=== PATIENT | male | born 1970 | race Caucasian/White ===

== ENCOUNTER 2019-03-13 00:12 | Inpatient (IN) ==
[2019-03-13] MEDS ORDERED: KETOROLAC TROMETHAMINE 15 MG/ML VIAL IV STA (01:15)
[2019-03-13 01:22] LABS: Basophils # (auto) 0.01 K/uL (0-0.2); Basophils % (auto) 0.1 %; Hematocrit (blood only) 40.8 % (42-52); Hemoglobin 15.1 g/dL (14.0-18.0); Immature Granulocytes # (auto) 0.02 K/uL (0.00-0.02); Immature Granulocytes % (auto) 0.2 %; Lymphocytes # (auto) 0.86 K/uL (1.2-3.4); Lymphocytes % (auto) 7.6 %; Mean Corpuscular Hemoglobin 31.4 pg (25-34); Mean Corpuscular Volume 84.8 fL (80-100); Mean Platelet Volume 9.1 fL (7.4-10.4); Monocytes # (auto) 0.61 K/uL (0.11-0.59); Monocytes % (auto) 5.4 %; Neutrophils # (auto) 9.82 K/uL (1.4-6.5); Neutrophils % (auto) 86.7 %; Platelet Count 356 K/uL (130-400); RDW Coefficient of Variation 11.7 % (11.5-14.5); RDW Standard Deviation 36.4 fL (36.4-46.3); Red Blood Count 4.81 M/uL (4.7-6.1); White Blood Count 11.32 K/uL (4.8-10.8)
[2019-03-13 01:34] LABS: Partial Thromboplastin Ratio 0.9; Partial Thromboplastin Time 25.4 Seconds (21.0-31.0)
[2019-03-13 01:40] LABS: Alanine Aminotransferase 16 U/L (12-78); Albumin Level 3.8 gm/dl (3.4-5.0); Aspartate Aminotransferase 7 U/L (15-37); BUN Creatinine Ratio 19.8 (10-20); Blood Urea Nitrogen 27 mg/dl (7-18); Calcium 9.4 mg/dl (8.5-10.1); Carbon Dioxide 25 mmol/L (21-32); Chloride 99 mmol/L (98-107); Creatinine Clr Calc Pharmacy 61.9 ml/min; Est GFR (African American) 70.9; Est GFR (Non-African American) 61.2; Glucose 201 mg/dl (70-99); Potassium 3.7 mmol/L (3.5-5.1); Sodium 135 mmol/L (136-145)
[2019-03-13 01:44] LABS: Alkaline Phosphatase 67 U/L (45-117); Bilirubin,Total 0.6 mg/dl (0.2-1); Total Protein 7.8 gm/dl (6.4-8.2); Troponin I < 0.015 ng/ml (0-0.045)
[2019-03-13] MEDS ORDERED: ONDANSETRON INJ 2 MG/ML 2 ML VIAL IV STA (01:53)
[2019-03-13] MEDS ORDERED: SODIUM CHLORIDE 0.9% 1000ML 1,000 ML IV ONE (01:53)
[2019-03-13 01:56] LABS: INR 1.1 (0.9-1.1); Prothrombin Time 11.3 Seconds (9.0-12.0)
[2019-03-13] MEDS ORDERED: MoRPHine SULFATE 4 MG/ML 1 ML CARP\\VIAL IV STA (04:03)
--- NOTE | 2019-03-13 04:49 | History & Physical Report ---
Date of Service March 13, 2019 Assessment & Plan (1) Confusion: 48yo M PMH T1DM presents with episode of confusion, altered speech. AMS/speech alteration -CT head negative. Ordered MR imaging; all non-con per request -Pt with DM, murmur, will workup for ?stroke -Echo ordered -Lipids recently checked december 2018, Tchol elevated at 226. -No new meds added given unable to reasonably discuss with ; will await imaging, neuro input -UDS ordered, not collected yet -Unsure if other herbal supplements, drugs, etc taken -Check lyme, b12, folate -Neuro consulted, appreciate any input they can offer -Consider psych consult -IVF NSS @ 125 Head/neck/low back pain -Toradol did not help - adamantly refused narcotics at first, pt requested something else to help pain -4mg IV morphine given in ER. -No further pain meds ordered -Zofran prn for nausea T1DM -Pt on levemir and humalog -26 U long acting daily -ISS 6-7 U short acting per day, did not provide scale -Requesting home insulin vials be used - will need to provide scale and vials to be confirmed by pharmacy Code: Full by default Dispo: admit to tele DVTP: low risk, defer to day team for discussion of chemical ppx with . (2) Episode of change in speech: (3) Headache: (4) Nausea: (5) Diabetes mellitus type 1: (6) Neck pain: History of Present Illness Chief Complaint: AMS, confusion, abnormal speech Primary Care Provider: Ela Nelson MD Pt is a 48yo M PMH T1DM who presents with his after an episode of confusion and altered speech. HPI provided by . Pt and local chiropractors. She states that about 1 week ago, he "threw out his back" and was in a significant amount of pain, and notes that in the last few days he started feeling quite sick, with body aches, chills, nausea/vomiting. She states that he was experiencing some alternating constipation, diarrhea, feeling like the had to have a BM but nothing would come out. She notes he has essentially been bed bound for about a week now. Today at 10AM, he got up to check his blood sugar, and she noticed he was trying to use the finger-prick on his arm, something he never does. He then attempted to hold the test strip to his wrist to collect blood that was not there. She helped to get a sample, and his BSG returned at 240. They administered 3 U of insulin per his ISS. Later in the evening he continued to be confused, stating that he wouldn't answer questions appropriately, answering his birthday incorrectly at times, not knowing the ages of their children, etc; so she decided to call 911. EMS arrived and rechecked glucose at around 220. initially refused transportation to hospital. She eventually drove him to the ER herself. NIHSS of 3 on arrival (issues with Dysarthria, language, orientation). States that he could recognize the object "feather" but would start saying "ffff--" and jibberish would come out. She states he has been taking some ibuprofen for sever head and neck pain, but they are averse to other medications. She notes his head and neck have been acutely bothering him today, stating his face muscles have been twitching. When asked about exposure to bites, cut, scrapes, declined. When asked if tetanus booster was up to date, she stated "I ask that no vaccinations be administered during his stay." When I clarified to ask if if he had had a tetanus booster in the last 10 years, she stated that "we have no need for vaccinations. 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 States she is "well-versed" in diabetes and for him to have a glucose of 240 is "extremely high" for him. She requests we use his own vials of insulin during his stay. CT head normal. Labwork otherwise normal. No alcohol, negative trop, ammonia <10. refused gadolinium for MRI scans; thus all scans w/o contrast. Flu negative. Pt tested for STDs a few months ago, all negative. Allergies Allergy/AdvReac Type Severity Reaction Status Date / Time No Known Allergies Allergy Verified 03/13/19 01:33 Home Medications Home Medications Medication Instructions Recorded Confirmed Type omega 2-cxf-aas-fish oil [Fish Oil] 1 cap PO DAILY 03/16/18 03/13/19 History insulin detemir U-100 100) 100 26 units SQ DAILY #30 ml 09/22/18 03/13/19 Rx unit/mL subcutaneous solution insulin lispro 100) 100 unit/mL 6 - 7 units SUBCUT DAILY #30 ml 09/22/18 03/13/19 Rx subcutaneous solution sildenafil 100 mg tablet 100 mg PO DAILY PRN #6 tab 01/03/19 03/13/19 Rx Past Med/Surg History Medical History Diabetes mellitus type 1 History of anesthesia reaction tachycardia with dental anesthesia Surgical History History of eye surgery right eye--multiple procedures History of tooth extraction wisdom teeth S/P foot surgery, left Family History Grandfather Myocardial infarction Social History Preferred Language: Mongolian Communication Ability: Effective Visual Impairment: Limited Hearing Ability: Normal Rn Primary Care Required: No Beliefs That Will Affect Care: None Current Living Situation: Significant Other Other Information That Helps Us Care for You: No Feels Safe at Home: Yes Safety Concerns: Feels Safe At This Time Smoking Status: Former smoker Second Hand Exposure: Yes (mother smoked) ; Hx Alcohol Use: No Hx Substance Use: No Childhood Exposure to Second-Hand Smoke: Yes Dental Care, Regularly: Yes Physical Activity Frequency: Daily Seatbelt Use: always Sunscreen Use: No Review of Systems Review of Systems: All systems reviewed & are unremarkable except as noted in HPI & below and Unobtainable due to cognitive status Physical Exam 2 Constitutional: WD/WN, vitals as above unwell but not in distress Eyes: PERRL, conjunctivae normal, anicteric sclerae ENMT: Ears: no hearing impairment Neck: normal visual inspection Respiratory: normal respiratory effort, lungs clear to auscultation Cardiovascular: Rate/Rhythm: regular rate and regular rhythm Heart Sounds: + murmur Extremities: no edema Gastrointestinal (Abdomen): normal bowel sounds, soft, nontender, no hepatosplenomegaly Musculoskeletal: Head/Neck/Chest: head normal to inspection Extremities: no joint enlargement Skin: no rashes, warm and dry Neurologic: no focal motor deficits Speech / Cognition: + abnormal speech pt speaking with difficulty, not all words in sequence are correct; (words replaced with similar-sounding words). able to follow most commands but states exam is limited due to pain. Repeatedly states that we need to check his blood sugar, despite it having just been checked. Psychiatric: Orientation: alert and oriented x 3 Results & Data Vital Signs (Past 12 Hours) Vital Signs Temp Pulse Pulse Resp BP BP Pulse Ox 03/13/19 03:30 80 16 100 03/13/19 03:26 76 17 148/57 H 99 03/13/19 03:04 15 03/13/19 02:30 15 148/76 H 03/13/19 02:13 68 63 16 158/87 H 158/87 H 99 03/13/19 00:18 97.7 F 80 20 154/77 H 100 Laboratory Results 03/13/19 03/13/19 03/13/19 Range/Units 03:40 01:35 01:35 WBC (4.8-10.8) K/uL RBC (4.7-6.1) M/uL Hgb (14.0-18.0) g/dL Hct (42-52) % MCV (80-100) fL MCH (25-34) pg MCHC (32-36) g/dL RDW Std Deviation (36.4-46.3) fL RDW Coeff of Radha (11.5-14.5) % Plt Count (130-400) K/uL MPV (7.4-10.4) fL Immature Gran % (Auto) % Neut % (Auto) % Lymph % (Auto) % Archer % (Auto) % Eos % (Auto) % Baso % (Auto) % Immature Gran # (Auto) (0.00-0.02) K/uL Neut # (Auto) (1.4-6.5) K/uL Lymph # (Auto) (1.2-3.4) K/uL Archer # (Auto) (0.11-0.59) K/uL Eos # (Auto) (0-0.5) K/uL Baso # (Auto) (0-0.2) K/uL PT (9.0-12.0) Seconds INR (0.9-1.1) APTT (21.0-31.0) Seconds PTT Ratio Sodium (136-145) mmol/L Potassium (3.5-5.1) mmol/L Chloride (98-107) mmol/L Carbon Dioxide (21-32) mmol/L Anion Gap (3-11) BUN (7-18) mg/dl Creatinine (0.6-1.4) mg/dl Est Cr Clr Drug Dosing ml/min Est GFR ( Amer) Est GFR (Non-Af Amer) BUN/Creatinine Ratio (10-20) Glucose (70-99) mg/dl POC Glucose (70-99) Calcium (8.5-10.1) mg/dl Magnesium (1.8-2.4) mg/dl Total Bilirubin (0.2-1) mg/dl AST (15-37) U/L ALT (12-78) U/L Alkaline Phosphatase (45-117) U/L Ammonia < 10.0 L (11-32) umol/L Troponin I (0-0.045) ng/ml Total Protein (6.4-8.2) gm/dl Albumin (3.4-5.0) gm/dl Globulin (2.5-4.0) gm/dl Albumin/Globulin Ratio (0.9-2) Ethyl Alcohol mg/dL < 3.0 (0-3) mg/dl Influenza Type A Ag Neg for Influ A (Neg) Influenza Type B Ag Neg for Influ B (Neg) 03/13/19 03/13/19 03/13/19 Range/Units 01:11 01:10 01:10 WBC (4.8-10.8) K/uL RBC (4.7-6.1) M/uL Hgb (14.0-18.0) g/dL Hct (42-52) % MCV (80-100) fL MCH (25-34) pg MCHC (32-36) g/dL RDW Std Deviation (36.4-46.3) fL RDW Coeff of Radha (11.5-14.5) % Plt Count (130-400) K/uL MPV (7.4-10.4) fL Immature Gran % (Auto) % Neut % (Auto) % Lymph % (Auto) % Archer % (Auto) % Eos % (Auto) % Baso % (Auto) % Immature Gran # (Auto) (0.00-0.02) K/uL Neut # (Auto) (1.4-6.5) K/uL Lymph # (Auto) (1.2-3.4) K/uL Archer # (Auto) (0.11-0.59) K/uL Eos # (Auto) (0-0.5) K/uL Baso # (Auto) (0-0.2) K/uL PT 11.3 (9.0-12.0) Seconds INR 1.1 (0.9-1.1) APTT (21.0-31.0) Seconds PTT Ratio Sodium 135 L (136-145) mmol/L Potassium 3.7 (3.5-5.1) mmol/L Chloride 99 (98-107) mmol/L Carbon Dioxide 25 (21-32) mmol/L Anion Gap 11.0 (3-11) BUN 27 H (7-18) mg/dl Creatinine 1.35 (0.6-1.4) mg/dl Est Cr Clr Drug Dosing 61.9 ml/min Est GFR ( Amer) 70.9 Est GFR (Non-Af Amer) 61.2 BUN/Creatinine Ratio 19.8 (10-20) Glucose 201 H (70-99) mg/dl POC Glucose 209 H (70-99) Calcium 9.4 (8.5-10.1) mg/dl Magnesium 2.0 (1.8-2.4) mg/dl Total Bilirubin 0.6 (0.2-1) mg/dl AST 7 L (15-37) U/L ALT 16 (12-78) U/L Alkaline Phosphatase 67 (45-117) U/L Ammonia (11-32) umol/L Troponin I < 0.015 (0-0.045) ng/ml Total Protein 7.8 (6.4-8.2) gm/dl Albumin 3.8 (3.4-5.0) gm/dl Globulin 4.0 (2.5-4.0) gm/dl Albumin/Globulin Ratio 1.0 (0.9-2) Ethyl Alcohol mg/dL (0-3) mg/dl Influenza Type A Ag (Neg) Influenza Type B Ag (Neg) 03/13/19 03/13/19 Range/Units 01:10 01:10 WBC 11.32 H (4.8-10.8) K/uL RBC 4.81 (4.7-6.1) M/uL Hgb 15.1 (14.0-18.0) g/dL Hct 40.8 L (42-52) % MCV 84.8 (80-100) fL MCH 31.4 (25-34) pg MCHC 37.0 H (32-36) g/dL RDW Std Deviation 36.4 (36.4-46.3) fL RDW Coeff of Radha 11.7 (11.5-14.5) % Plt Count 356 (130-400) K/uL MPV 9.1 (7.4-10.4) fL Immature Gran % (Auto) 0.2 % Neut % (Auto) 86.7 % Lymph % (Auto) 7.6 % Archer % (Auto) 5.4 % Eos % (Auto) 0.0 % Baso % (Auto) 0.1 % Immature Gran # (Auto) 0.02 (0.00-0.02) K/uL Neut # (Auto) 9.82 H (1.4-6.5) K/uL Lymph # (Auto) 0.86 L (1.2-3.4) K/uL Archer # (Auto) 0.61 H (0.11-0.59) K/uL Eos # (Auto) 0.00 (0-0.5) K/uL Baso # (Auto) 0.01 (0-0.2) K/uL PT (9.0-12.0) Seconds INR (0.9-1.1) APTT 25.4 (21.0-31.0) Seconds PTT Ratio 0.9 Sodium (136-145) mmol/L Potassium (3.5-5.1) mmol/L Chloride (98-107) mmol/L Carbon Dioxide (21-32) mmol/L Anion Gap (3-11) BUN (7-18) mg/dl Creatinine (0.6-1.4) mg/dl Est Cr Clr Drug Dosing ml/min Est GFR ( Amer) Est GFR (Non-Af Amer) BUN/Creatinine Ratio (10-20) Glucose (70-99) mg/dl POC Glucose (70-99) Calcium (8.5-10.1) mg/dl Magnesium (1.8-2.4) mg/dl Total Bilirubin (0.2-1) mg/dl AST (15-37) U/L ALT (12-78) U/L Alkaline Phosphatase (45-117) U/L Ammonia (11-32) umol/L Troponin I (0-0.045) ng/ml Total Protein (6.4-8.2) gm/dl Albumin (3.4-5.0) gm/dl Globulin (2.5-4.0) gm/dl Albumin/Globulin Ratio (0.9-2) Ethyl Alcohol mg/dL (0-3) mg/dl Influenza Type A Ag (Neg) Influenza Type B Ag (Neg) Code Status & VTE Plan Code Status full Supervising Physician Co-Signing Physician Notes Patient was evaluated by me personally. I reviewed the chart, the orders and discussed the case in detail with Dr. Roberta Torres MD . I read this H&P and agree with its contents to entirety. Resident Activity Tracking Resident Involvement: Resident Care Provided Care Provided: Adult Hospital Medicine (1) Headache Headache chronicity pattern: acute headache Headache type: unspecified Intractability: not intractable Qualified Code(s): R51 - Headache
[2019-03-13] MEDS ORDERED: ALUMINUM/MAGNESIUM SUSP 30 ML UDC PO PRN (05:50)
[2019-03-13] MEDS ORDERED: POLYETHYLENE (MIRALAX) 17 GM PACK PO PRN (05:50)
[2019-03-13] MEDS ORDERED: MAGNESIUM HYDROXIDE SUSP 30 ML UDC PO PRN (05:50)
[2019-03-13] MEDS ORDERED: ACETAMINOPHEN 325 MG TAB PO PRN (05:50)
--- NOTE | 2019-03-13 06:14 | Emergency Department Note ---
Entered by Lucia Lynne acting as a scribe for History of Present Illness General Chief complaint: Neuro Symptoms/Deficit Stated complaint: FLU,NAUSEA,VOMITING,INABILITY TO FORM PROPER WORDS Time Seen by Provider: 03/13/19 00:59 Source: patient and family () History of Present Illness Onset (ago): hour(s) 3 Location: head Pain Consistency: + other (episode) Maximum Pain Intensity: 5 Quality: + other (neurological symptoms) Associated symptoms: + fever/chills (intermittent), + headaches (exacerbated by light), + nausea/vomiting and + other (positive unable to put proper words together; positive intermittently saying things that are not words; positive unable to say date of ; positive unable to say year; negative numbness; negative vision changes; negative difficulty walking; positive neck pain) The patient is a 48 year old male with PMHx of Type 1 Diabetes who presents to the Emergency Room with complaints of an episode of neurological symptoms that began at approximately 2200, 3 hours prior to arrival. The patient's states that at this time the patient was having difficulties testing his blood sugar, which is unusual for him. The patient's states that she then noticed that the patient was unable to put the proper words together and would intermittently say things that were not words. The patient's states that the patient was unable to tell her his date of but was intermittently able to say the current year correctly. The patient denies numbness. He states that he has a headache at the back of his head and neck pain. The patient states that his pain is exacerbated by light. He reports feeling nauseous and dehydrated currently. The patient denies vision changes and difficulties walking. The patient denies falls. The patient's states that the patient's back "went out" last week and he then began to have fevers and chills over the past 5 days. The patient's reports that the patient had nausea and vomiting during this time, stating that the patient has been unable to keep food down. The patient states that yesterday and today his symptoms appeared to be improving before this episode tonight. Home Medications Home Medications Medication Instructions Recorded Confirmed Type omega 3-blw-ogf-fish oil [Fish Oil] 1 cap PO DAILY 03/16/18 03/13/19 History insulin detemir U-100 100) 100 26 units SQ DAILY #30 ml 09/22/18 03/13/19 Rx unit/mL subcutaneous solution insulin lispro 100) 100 unit/mL 6 - 7 units SUBCUT DAILY #30 ml 09/22/18 03/13/19 Rx subcutaneous solution sildenafil 100 mg tablet 100 mg PO DAILY PRN #6 tab 01/03/19 03/13/19 Rx Allergies Allergy/AdvReac Type Severity Reaction Status Date / Time No Known Allergies Allergy Verified 03/13/19 01:33 Past Med/Surg History Medical History Diabetes mellitus type 1 History of anesthesia reaction tachycardia with dental anesthesia Surgical History History of eye surgery right eye--multiple procedures History of tooth extraction wisdom teeth S/P foot surgery, left Family History Grandfather Myocardial infarction Social History Preferred Language: Citizen Of [place] Communication Ability: Effective Visual Impairment: Limited Hearing Ability: Normal 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 and A total of 10 systems reviewed and were otherwise negative Physical Exam Vital Signs Vital Signs - 24 hr 03/13/19 00:18 03/13/19 02:13 03/13/19 02:30 Temperature 36.5 C Temperature Source Oral Pulse Rate 80 68 Pulse Rate [Finger] 63 Pulse Rate from SpO2 Sensor Pulse Rhythm Regular Pulse Strength Normal Respiratory Rate 20 16 15 Respiratory Effort / Characteristics Non-Labored Spontaneous Respiratory Depth Normal Respiratory Pattern Regular Blood Pressure 154/77 H 158/87 H 148/76 H Blood Pressure [Right Arm] 158/87 H Blood Pressure Mean 102 122 116 Blood Pressure Mean [Right Arm] 110 Blood Pressure Position Sitting Pulse Oximetry 100 99 Oxygen Delivery Method Room Air Room Air Sepsis Recent Fever Within 48 Hours Yes Sepsis Action Taken by Nursing No Action Required 03/13/19 03:04 03/13/19 03:26 03/13/19 03:30 Temperature Temperature Source Pulse Rate 76 80 Pulse Rate [Finger] Pulse Rate from SpO2 Sensor 78 79 Pulse Rhythm Pulse Strength Respiratory Rate 15 17 16 Respiratory Effort / Characteristics Respiratory Depth Respiratory Pattern Blood Pressure 148/57 H Blood Pressure [Right Arm] Blood Pressure Mean 102 Blood Pressure Mean [Right Arm] Blood Pressure Position Pulse Oximetry 99 100 Oxygen Delivery Method Sepsis Recent Fever Within 48 Hours Sepsis Action Taken by Nursing GENERAL: Covering eyes. Awake, appears uncomfortable HENT: Normocephalic, atraumatic. EYES: Normal conjunctiva. Sclera non-icteric. NECK: Supple. No nuchal rigidity. RESPIRATORY: Clear to auscultation. No wheezes. Normal respiratory effort. CARDIAC: Normal rate. Normal rhythm. Extremities warm and well perfused. GI: Soft, non-distended. No real tenderness to palpation. No rebound or guarding. RECTAL: Deferred. MUSCULOSKELETAL: Atraumatic. Chest examination reveals no tenderness. LOWER EXTREMITIES: Calves are equal size bilaterally and non-tender. No edema NEURO: No sensory or motor deficits noted. No facial droop. No slurred speech. Patient tangential with answering questions at times. Difficulty answering the year. Confused statements at times. SKIN: Warm and dry. No rash or jaundice noted. Course Course 0102: Past medical records reviewed. The patient was evaluated in room C2B. A complete history and physical exam was performed. 0254: I checked on and updated the patient on all results. He is in agreement with the treatment plan. 0308: I discussed the case with Dr. [facility] Hospitalist who accepts the patient for further evaluation. Administered Medications Discontinued Medications Sodium Chloride (Nss 1000ml) 1,000 mls @ 999 mls/hr IV .Q1H1M ONE Stop: 03/13/19 02:53 Last Infusion: 03/13/19 03:10 Dose: 0 mls/hr Documented by: [id number] Admin: 03/13/19 02:11 Dose: 999 mls/hr Documented by: [id number] Ketorolac Tromethamine (Toradol) 15 mg IV NOW STA Stop: 03/13/19 01:16 Last Admin: 12/09/19 02:52 Dose: 15 mg Documented by: [id number] Morphine Sulfate (Morphine Sulfate) 4 mg IV NOW STA Stop: 03/13/19 04:04 Last Admin: 03/13/19 04:09 Dose: 4 mg Documented by: [id number] Ondansetron HCl (Zofran) 4 mg IV NOW STA Stop: 03/13/19 01:54 Last Admin: 03/13/19 02:11 Dose: 4 mg Documented by: [id number] Medical Decision Making Differential Diagnosis Differential diagnoses includes but is not limited to toxic, metabolic, infectious, traumatic, cardiac, neurologic, hematologic, psychiatric and inflammatory etiologies. Medical Records Attestation: I reviewed the patient's medical records. Home Medications Current Medication List: was personally reviewed by me Laboratory Data Attestation: I reviewed the patient's lab results. Result diagrams: 03/13/19 01:10 03/13/19 01:10 Lab Results 03/13/19 03/13/19 03/13/19 Range/Units 01:10 01:10 01:10 WBC 11.32 H (4.8-10.8) K/uL RBC 4.81 (4.7-6.1) M/uL Hgb 15.1 (14.0-18.0) g/dL Hct 40.8 L (42-52) % MCV 84.8 (80-100) fL MCH 31.4 (25-34) pg MCHC 37.0 H (32-36) g/dL RDW Std Deviation 36.4 (36.4-46.3) fL RDW Coeff of Radha 11.7 (11.5-14.5) % Plt Count 356 (130-400) K/uL MPV 9.1 (7.4-10.4) fL Immature Gran % (Auto) 0.2 % Neut % (Auto) 86.7 % Lymph % (Auto) 7.6 % Harris % (Auto) 5.4 % Eos % (Auto) 0.0 % Baso % (Auto) 0.1 % Immature Gran # (Auto) 0.02 (0.00-0.02) K/uL Neut # (Auto) 9.82 H (1.4-6.5) K/uL Lymph # (Auto) 0.86 L (1.2-3.4) K/uL Harris # (Auto) 0.61 H (0.11-0.59) K/uL Eos # (Auto) 0.00 (0-0.5) K/uL Baso # (Auto) 0.01 (0-0.2) K/uL PT (9.0-12.0) Seconds INR (0.9-1.1) APTT 25.4 (21.0-31.0) Seconds PTT Ratio 0.9 Sodium 135 L (136-145) mmol/L Potassium 3.7 (3.5-5.1) mmol/L Chloride 99 (98-107) mmol/L Carbon Dioxide 25 (21-32) mmol/L Anion Gap 11.0 (3-11) BUN 27 H (7-18) mg/dl Creatinine 1.35 (0.6-1.4) mg/dl Est Cr Clr Drug Dosing 61.9 ml/min Est GFR ( Amer) 70.9 Est GFR (Non-Af Amer) 61.2 BUN/Creatinine Ratio 19.8 (10-20) Glucose 201 H (70-99) mg/dl POC Glucose (70-99) Calcium 9.4 (8.5-10.1) mg/dl Magnesium 2.0 (1.8-2.4) mg/dl Total Bilirubin 0.6 (0.2-1) mg/dl AST 7 L (15-37) U/L ALT 16 (12-78) U/L Alkaline Phosphatase 67 (45-117) U/L Ammonia (11-32) umol/L Troponin I < 0.015 (0-0.045) ng/ml Total Protein 7.8 (6.4-8.2) gm/dl Albumin 3.8 (3.4-5.0) gm/dl Globulin 4.0 (2.5-4.0) gm/dl Albumin/Globulin Ratio 1.0 (0.9-2) Ethyl Alcohol mg/dL (0-3) mg/dl Influenza Type A Ag (Neg) Influenza Type B Ag (Neg) 03/13/19 03/13/19 03/13/19 Range/Units 01:10 01:11 01:35 WBC (4.8-10.8) K/uL RBC (4.7-6.1) M/uL Hgb (14.0-18.0) g/dL Hct (42-52) % MCV (80-100) fL MCH (25-34) pg MCHC (32-36) g/dL RDW Std Deviation (36.4-46.3) fL RDW Coeff of Radha (11.5-14.5) % Plt Count (130-400) K/uL MPV (7.4-10.4) fL Immature Gran % (Auto) % Neut % (Auto) % Lymph % (Auto) % Harris % (Auto) % Eos % (Auto) % Baso % (Auto) % Immature Gran # (Auto) (0.00-0.02) K/uL Neut # (Auto) (1.4-6.5) K/uL Lymph # (Auto) (1.2-3.4) K/uL Harris # (Auto) (0.11-0.59) K/uL Eos # (Auto) (0-0.5) K/uL Baso # (Auto) (0-0.2) K/uL PT 11.3 (9.0-12.0) Seconds INR 1.1 (0.9-1.1) APTT (21.0-31.0) Seconds PTT Ratio Sodium (136-145) mmol/L Potassium (3.5-5.1) mmol/L Chloride (98-107) mmol/L Carbon Dioxide (21-32) mmol/L Anion Gap (3-11) BUN (7-18) mg/dl Creatinine (0.6-1.4) mg/dl Est Cr Clr Drug Dosing ml/min Est GFR ( Amer) Est GFR (Non-Af Amer) BUN/Creatinine Ratio (10-20) Glucose (70-99) mg/dl POC Glucose 209 H (70-99) Calcium (8.5-10.1) mg/dl Magnesium (1.8-2.4) mg/dl Total Bilirubin (0.2-1) mg/dl AST (15-37) U/L ALT (12-78) U/L Alkaline Phosphatase (45-117) U/L Ammonia < 10.0 L (11-32) umol/L Troponin I (0-0.045) ng/ml Total Protein (6.4-8.2) gm/dl Albumin (3.4-5.0) gm/dl Globulin (2.5-4.0) gm/dl Albumin/Globulin Ratio (0.9-2) Ethyl Alcohol mg/dL (0-3) mg/dl Influenza Type A Ag (Neg) Influenza Type B Ag (Neg) 03/13/19 03/13/19 Range/Units 01:35 03:40 WBC (4.8-10.8) K/uL RBC (4.7-6.1) M/uL Hgb (14.0-18.0) g/dL Hct (42-52) % MCV (80-100) fL MCH (25-34) pg MCHC (32-36) g/dL RDW Std Deviation (36.4-46.3) fL RDW Coeff of Radha (11.5-14.5) % Plt Count (130-400) K/uL MPV (7.4-10.4) fL Immature Gran % (Auto) % Neut % (Auto) % Lymph % (Auto) % Harris % (Auto) % Eos % (Auto) % Baso % (Auto) % Immature Gran # (Auto) (0.00-0.02) K/uL Neut # (Auto) (1.4-6.5) K/uL Lymph # (Auto) (1.2-3.4) K/uL Harris # (Auto) (0.11-0.59) K/uL Eos # (Auto) (0-0.5) K/uL Baso # (Auto) (0-0.2) K/uL PT (9.0-12.0) Seconds INR (0.9-1.1) APTT (21.0-31.0) Seconds PTT Ratio Sodium (136-145) mmol/L Potassium (3.5-5.1) mmol/L Chloride (98-107) mmol/L Carbon Dioxide (21-32) mmol/L Anion Gap (3-11) BUN (7-18) mg/dl Creatinine (0.6-1.4) mg/dl Est Cr Clr Drug Dosing ml/min Est GFR ( Amer) Est GFR (Non-Af Amer) BUN/Creatinine Ratio (10-20) Glucose (70-99) mg/dl POC Glucose (70-99) Calcium (8.5-10.1) mg/dl Magnesium (1.8-2.4) mg/dl Total Bilirubin (0.2-1) mg/dl AST (15-37) U/L ALT (12-78) U/L Alkaline Phosphatase (45-117) U/L Ammonia (11-32) umol/L Troponin I (0-0.045) ng/ml Total Protein (6.4-8.2) gm/dl Albumin (3.4-5.0) gm/dl Globulin (2.5-4.0) gm/dl Albumin/Globulin Ratio (0.9-2) Ethyl Alcohol mg/dL < 3.0 (0-3) mg/dl Influenza Type A Ag Neg for Influ A (Neg) Influenza Type B Ag Neg for Influ B (Neg) Imaging Data Radiologist's Impression: Radiology results as stated below per my review and the radiologist's interpretation: CT HEAD: FINDINGS: Mild prominence of the interhemispheric fissure in the tentoriumis likely within normal limits. No intracranial hemorrhage, abnormal intra- or extra-axial collections or parenchymal lesions are seen. The shape and configuration of the cortical sulci, basal cisterns and ventricles are within normal limits. The chavis-white differentiation is preserved. No evidence of mass effect, midline shift, or edema. The osseous structures are unremarkable. The visualized portions of the paranasal sinuses are clear. IMPRESSION:Normal non-contrast CT scan of the head. Radiologist: Bel Wilhelm MD Study ready at 02:08 and initial results transmitted at 02:19 ECG Data Attestation: I personally reviewed and interpreted this ECG as follows: Indication: + altered mental status Rate (beats per minute): 74 Rhythm: + normal sinus ECG Intervals/blocks: + Normal QT-c ECG ST segments: no ST depression and no ST elevation ECG Findings: + Other (some artifact); no PVCs Blood Pressure Blood Pressure Findings: Elevated blood pressure Blood Pressure Disposition: further management by hospitalist TERRENCE Narrative Patient is a 48-year-old type I diabetic presenting today with complaints of word finding issues starting fairly acutely this evening. Been unwell all week with reports of intermittent fevers nausea vomiting weakness. Had back pain earlier in the week that is now significant improved although now having more of a headache with some neck discomfort more in the occiput. Denies trauma. Moving all extremities. No facial droop or slurred speech but having some issues with his birthday and stating that time. Making some nonsensical statements at times. Significant other reports is acutely different. EKG was completed without significant interval abnormalities. Basic labs and glucose were obtained. Lactate not significantly elevated. No signs of DKA. Afebrile here. Lower suspicion for acute meningitis. White count of 11.32 is nonspecific. No significant electrolyte abnormality. Alcohol level undetectable. CT the head was completed without evidence per stat read of acute intracranial abnormality. Discussed with him performing angiograms to evaluate for vascular issues such as stenosis, thrombosis, or dissection. They wish to defer this at this time. I doubt this is bacterial meningitis. Do not feel the patient would be a candidate for TPA given the limited symptoms here. Given that he is had persistence of the issues discussed with him my recommendation to stay for further medical and neurological evaluation here in the hospital. Was agreeable for further MRI testing without contrast. Discussed with the hospitalist. Patient was agreeable to staying for further evaluation. No change in his symptoms while here. Impression & Plan Confusion, Episode of change in speech, Headache, Nausea Discharge Plan Visit Data *Final* Discharge Date/Time: 03/13/19 05:08 Chief Complaint: Neuro Symptoms/Deficit Stated Complaint: FLU,NAUSEA,VOMITING,INABILITY TO FORM PROPER WORDS ED Provider: Shady Kapoor Discharge Problem: Confusion, Episode of change in speech, Headache, Nausea Patient Disposition: Admitted As Inpatient Discharge Instructions Interventions: ED Discharge Assessment Last Done: 03/13/19 05:08 Discharge Problem: Headache Qualifiers: Headache type: unspecified Headache chronicity pattern: acute headache Intractability: not intractable Qualified Code(s): R51 - Headache The lisset's documentation has been prepared under my direction and personally reviewed by me in its entirety. I confirm that the note above accurately reflects all work, treatment, procedures, and medical decision making performed by me.
[2019-03-13] MEDS ORDERED: MoRPHine SULFATE 10 MG/ML CARP/VIAL IV PRN ×2 (06:20→09:12)
[2019-03-13] MEDS: SODIUM CHLORIDE 0.9% 1000ML 1,000 ML IV SCH ×3 (06:29→23:28)
--- NOTE | 2019-03-13 06:33 | Billing Data ---
Coding Level of Care Code 67154 OBS Care - Level 2
[2019-03-13] MEDS: TRAMADOL HCL 50 MG TABLET PO PRN ×2 (06:35→12:07)
--- NOTE | 2019-03-13 07:05 | Magnetic Resonance Report ---
MR brain wo con HISTORY: Mental status change ams, speech issues TECHNIQUE: Multiplanar multisequence MRI of the brain was performed without the use of contrast. COMPARISON STUDY: None. FINDINGS: There are no areas of restricted diffusion to suggest acute infarction. The midline structu res are intact. The paranasal sinuses are clear. The mastoid air cells are clear. The ventricles and sulci are within normal limits for age. There is no mass, hematoma, midline shift. The major vascular flow-voids at the skull base are well maintained. Coronal FLAIR images demonstrate several very smal l foci of nonspecific increased signal right occipital lobe. IMPRESSION: No acute intracranial abnormality. Several very small foci of increased signal right occipital lobe. The above report was generated using voice recognition software. It may contain grammatical, syntax or spelling errors. Electronically signed by: Henry Cortés M.D. 03/13/2019 7:03 AM
--- NOTE | 2019-03-13 07:07 | Magnetic Resonance Report ---
MR angio head wo con HISTORY: speech issues ams, carreon TECHNIQUE: 3-D [id number] MRA of the brain was performed without contrast. COMPARISON STUDY: None. FINDINGS: Visualized intracranial internal carotid arteries, distal vertebral arteries, and basilar a rtery are widely patent. There is no significant stenosis, occlusion, or aneurysm seen within the manuel ateral ACAs, MCAs, or telegraphic typewriter operator chief. IMPRESSION: No significant stenosis, occlusion, or aneurysm within the [place]. The above report was generated using voice recognition software. It may contain grammatical, syntax or spelling errors. Electronically signed by: Henry Cortés M.D. 03/13/2019 7:06 AM
--- NOTE | 2019-03-13 07:13 | CT Scan Report ---
CT OF THE HEAD WITHOUT CONTRAST CLINICAL HISTORY: Stroke evaluation COMPARISON STUDY: No previous studies for comparison. CT DOSE: 614.27 mGy.cm TECHNIQUE: Helical axial images of the head were obtained without IV contrast. Automated exposure con trol was utilized for the study. A dose lowering technique was utilized adhering to the principles o f ALARA. FINDINGS: No acute intracranial hemorrhage, midline shift or mass effect is present. The ventricular system is unremarkable. The basilar cisterns are patent. No extra-axial collections are present. Ther e are no findings to suggest acute dural sinus thrombosis or acute territorial infarct. No significan t calvarial abnormalities are present. Visualized portions of the sinuses and mastoid air cells are c lear. IMPRESSION: No acute intracranial findings. Electronically signed by: Ben Castellon M.D. 03/13/2019 7:11 AM
--- NOTE | 2019-03-13 07:48 | Magnetic Resonance Report ---
MRA OF THE NECK WITHOUT CONTRAST CLINICAL HISTORY: Speech issues. Altered mental status. Headache. COMPARISON STUDY: None. TECHNIQUE: A 1.5 Kierra magnet was utilized. 2-D and 3-D [id number] imaging was performed to obt ain unenhanced MRA of the neck. NASCET criteria were utilized to estimate the degree of carotid sten osis. FINDINGS: This exam is significantly contrast was given motion artifact and lack of postcontrast imag ing. There is mild irregularity/indentation of the proximal right internal carotid artery possibly du e to atherosclerosis. There is no significant stenosis. The bilateral common carotid and cervical lef t internal carotid artery appear patent. The left vertebral artery is dominant and patent. Sensitivit y for dissection is diminished on this exam but none are identified. IMPRESSION: 1. Exam significantly compromised given motion artifact and lack of postcontrast imaging. 2. Mild irregularity/dilatation of the proximal right internal carotid artery, possibly due to athero sclerosis. No significant stenosis. Electronically signed by: Ben Castellon M.D. 03/13/2019 7:47 AM
[2019-03-13 08:10] LABS: Lyme Ab IgG w/WB Rflx Negative (Negative); Lyme Ab IgM w/WB Rflx Negative (Negative)
[2019-03-13 08:12] LABS: Folate (Folic Acid) > 24.00 ng/ml (>5.38); Vitamin B12 871 pg/ml (211-911)
[2019-03-13] MEDS ORDERED: INSULIN DETEMIR FLEXPEN/FLEX TOUCH 100 UNITS/ML 3ML SC SCH ×3 (09:00→09:45)
[2019-03-13] MEDS ORDERED: MoRPHine SULFATE 2 MG/ML CARP ONE (09:01)
[2019-03-13] MEDS ORDERED: MoRPHine SULFATE 4 MG/ML 1 ML CARP\\VIAL ONE (09:02)
[2019-03-13] MEDS ORDERED: KETOROLAC 30 MG/ML VIAL IV ONE (09:24)
--- NOTE | 2019-03-13 09:26 | Neurology Consultation ---
Date of Consultation March 13, 2019 Assessment & Plan (1) Headache: (2) Episode of change in speech: (3) Confusion: (4) Nausea: Patient has had a significant viral/flu-like illness for the last week with nausea vomiting, occipital headache, lightheadedness and dehydration. He has been fatigued and sleepy missing work. He was admitted early this morning with an episode of some confusion and word- finding difficulties of a nonspecific nature. He was dehydrated on admission and his mental status and speech are back to baseline without any focal neurologic signs or meningeal signs. I suspect he has a bit of meningismus (without meningitis) clinically. He remains fatigued and lightheaded with standing. MRI of the brain showed no acute stroke. There was some tiny nonspecific old white matter spots in the right occipital head region. No significant vascular anomalies were noted. He still has a significant headache with nausea, vomiting, and mild phonophobia. He has a history of low back pain recently who which is not a significant problem currently. Recommendations: 1. Hydrate as you are doing. 2. Treat headache with nonsteroidal anti-inflammatory medication. With the nausea vomiting and photophobia as well as the occipital headache, trying a 4 mg sumatriptan injection subcutaneously may be beneficial. 3. Increase activity as able. Otherwise I have no further neurologic testing or treatment recommendations to make at this time. I do not believe he needs an echocardiogram, lumbar puncture, or EEG at this time. 4. Doug and follow-up as an outpatient as desired. Overall, I spent a total of 90 minutes with this case including review of records, review of MRI films, direct evaluation the patient at bedside, and discussion of the case with the patient and his RN at bedside, Dr. Bishop and Dr. Bustos, including differential diagnosis and treatment options. History of Present Illness Reason for Consultation: Patient is a 48-year-old, who I was asked to see the request of Dr. Torres, for neurologic consultation regarding acute encephalopathy and other issues Requesting Physician: Dr. Dodson Attending Physician: Александр Bustos History of Present Illness Patient is a 48-year-old, who has a greater than 45 year history of type 1 diabetes on insulin. He has no history of hypertension, dyslipidemia, heart issues, or previous stroke. He has no history of head trauma or meningitis but did severe headaches starting age 19-20 years old. Over time he has had some intermittent occipital headaches but does not have a history of migraines as far as I can ascertain. About 1 week ago he had some low back pain of a non radiating nature. He also had increase in occipital pain bilaterally. There was sacral pain but no cervical spine pain in the limbs had no pain, weakness, or numbness. He felt that he had a flu-like illness and spent much in the last week sleeping and he missed work. He was fatigued and achy. On the evening March 12 had the occipital headache and at around 2200 he had difficulty figuring out how uses insulin. This had never happened to. He would say some words in his speech that did not make sense but does recall all this. This confusion word-finding difficulty lasted several hours. He had some nausea vomiting myalgias. He knew that dehydrated. The record to the emergency room on March 13 at 0018, the temperature 36.5, pulse is 80 regular, blood pressure 154/77, and O2 saturation 100%. There were no focal neurologic findings and meningeal signs in. He did not a omid encephalopathy and over time gradually felt that he improved with this cognitive function. CBC showed white count of 11.3 normal hemoglobin hematocrit. Glucose was 209 Chem profile was otherwise unremarkable except for an elevated BUN. Flu, Lyme antibody titers, B12, folate were. CT scan of the head showed no acute changes. MRI of the brain showed no acute stroke with 2 tiny nonspecific right occipital white matter changes of an old nature. MR angiography of the head neck were largely unremarkable. This morning he feels somewhat lightheaded and nauseated and threw up several times during our initial examination. He felt warm and after vomiting felt a little bit better. He has a bioccipital pounding throbbing pain with a little bit of photophobia. Allergies Allergy/AdvReac Type Severity Reaction Status Date / Time No Known Allergies Allergy Verified 03/13/19 01:33 Home Medications Home Medications Medication Instructions Recorded Confirmed Type omega 5-[id number]-dsp-fish oil [Fish Oil] 1 cap PO DAILY 03/16/18 03/13/19 History insulin detemir U-100 100) 100 26 units SQ DAILY #30 ml 09/22/18 03/13/19 Rx unit/mL subcutaneous solution insulin lispro 100) 100 unit/mL 6 - 7 units SUBCUT DAILY #30 ml 09/22/18 03/13/19 Rx subcutaneous solution sildenafil 100 mg tablet 100 mg PO DAILY PRN #6 tab 01/03/19 03/13/19 Rx Patient History Family History Grandfather Myocardial infarction Father Heart disease Social History Preferred Language: Serbian Communication Ability: Effective Visual Impairment: Limited Hearing Ability: Normal Art Editor Required: No Beliefs That Will Affect Care: None Current Living Situation: Significant Other current occupation: Chiropractor Other Information That Helps Us Care for You: No Feels Safe at Home: Yes Safety Concerns: Feels Safe At This Time Smoking Status: Former smoker Age Quit Using Tobacco: 23 ; Years Smoked: 4 ; Second Hand Exposure: Yes (mother smoked) ; Hx Alcohol Use: No Hx Substance Use: No Childhood Exposure to Second-Hand Smoke: Yes Dental Care, Regularly: Yes Physical Activity Frequency: Daily Seatbelt Use: always Sunscreen Use: No Review of Systems Constitutional: + body aches, + fatigue, + malaise, + anorexia and + daytime sleepiness; no fever and no weakness Eyes: no diplopia, no eye pain and no worsening vision Ear, Nose, Mouth, Throat: + dizziness; no ear pain, no tinnitus, no hearing loss, no snoring, no hoarseness and no dysphagia Respiratory: no cough and no dyspnea Cardiovascular: no chest pain, no palpitations and no lightheadedness Gastrointestinal: + nausea and + vomiting; no abdominal pain Genitourinary: no dysuria and no urinary incontinence Musculoskeletal: + back pain and + myalgia; no neck pain, no radicular pain and no joint pain Integumentary: no rash and no lesions Neurologic: + headache(s); no gait abnormality, no localized weakness, no generalized weakness, no tingling, no numbness, no tremor(s), no abnormal movements, no abnormal speech, no confusion and no memory loss Psychiatric: no depression, no irritability, no anxiety, no difficulty concentrating, no confusion and no hallucinations Endocrine: + fatigue; no flushing Hematologic / Lymphatic: no easy bleeding and no easy bruising Allergy / Immunological: no urticaria and no problem reported Physical Exam Physical Exam: The patient is right-handed. The patient is awake, alert, and attentive. Speech is normal without any aphasia or dysarthria. he can name objects, repeat phrases, and has normal spontaneous speech. Although he is somewhat tired and lightheaded with sitting up, Mentation and thought processes are intact, with orientation to person, place and time, and normal fund of knowledge. Attention and concentration are normal. Mood and affect are normal and appropriate. General appearance and grooming are normal. Short and long-term memory are intact. The discs are sharp with positive venous pulsations bilaterally. There are no exudates, hemorrhages, or blood vessel changes seen. Pupils are 3 mm bilaterally and reactive to light. Extraocular eye muscles are intact without nystagmus. Visual acuity and visual aquino seem normal grossly to confrontation. There are no deficits to sensation in the face in all 3 distributions of the fifth cranial nerve bilaterally. Corneal reflexes are positive bilaterally. Facial strength and symmetry was normal bilaterally. Hearing seems normal to whisper and finger rub bilaterally. Palate moves well without asymmetry. There is normal sternocleidomastoid and trapezius (shoulder shrug) strength bilaterally. Tongue is midline with good strength bilaterally. Neck has a full range of motion without discomfort. There are no cervical bruits bilaterally. There are no cranial or ocular bruits. Heart is without murmur. There is a regular rhythm and rate. Cervical spine itself is nontender to palpation but the cervical occipital junction is somewhat tender to palpation bilaterally. Thoracic and lumbar spine are nontender to palpation. Gait is narrow based, with good arm swing, turns, and stance. Balance is normal eyes open or closed. With outstretched arms there is no drift. There are no resting, postural, or action tremors. There is no ataxia with finger to nose testing. There is good facility in the hands. No other abnormal involuntary movements are noted. Motor strength is 5/5 diffusely in the arms bilaterally including deltoids, biceps, triceps, brachioradialis, wrist flexors and extensors, coiled tubing operator, and intrinsic hand muscles. Motor strength is 5/5 diffusely in the legs bilaterally including hip flexors, quadriceps, hamstrings, gastrocnemius, tibialis anterior, tibialis posterior, and Peroneii muscles. Toe extensors are normal and there is good bulk in the extensor digitorum brevis muscles bilaterally. The limbs have good tone without rigidity or spasticity. There is no atrophy noted in the muscles. Muscle bulk is normal, there is no tenderness to palpation, no myotonia to percussion, and no fasciculations seen. Sensory examination is intact to touch and pin throughout all 4 limbs diffusely. Reflexes are 1/4 in the biceps, triceps, brachioradialis, quadriceps, and Achilles tendons bilaterally. There is no clonus bilaterally. Toes are downgoing with plantar stimulation bilaterally. Peripheral pulses are present and of normal quality distally in all 4 limbs. There is no peripheral edema noted in the limbs. Results & Data Vital Signs (Past 12 Hours) Vital Signs Temp Pulse Pulse Resp BP BP Pulse Ox 03/13/19 07:41 37.4 C 67 18 153/72 H 99 03/13/19 05:45 37.6 C H 62 18 124/54 L 98 03/13/19 05:08 82 18 142/77 H 96 03/13/19 03:30 80 16 100 03/13/19 03:26 76 17 148/57 H 99 03/13/19 03:04 15 03/13/19 02:30 15 148/76 H 03/13/19 02:13 68 63 16 158/87 H 158/87 H 99 03/13/19 00:18 36.5 C 80 20 154/77 H 100 Diagnostic Findings MR brain wo con HISTORY: Mental status change ams, speech issues TECHNIQUE: Multiplanar multisequence MRI of the brain was performed without the use of contrast. COMPARISON STUDY: None. FINDINGS: There are no areas of restricted diffusion to suggest acute infarction. The midline structures are intact. The paranasal sinuses are clear. The mastoid air cells are clear. The ventricles and sulci are within normal limits for age. There is no mass, hematoma, midline shift. The major vascular flow-voids at the skull base are well maintained. Coronal FLAIR images demonstrate several very small foci of nonspecific increased signal right occipital lobe. IMPRESSION: No acute intracranial abnormality. Several very small foci of increased signal right occipital lobe. PG Care Time/CCT Total # of Minutes Spent Total Time Spent with Patient: Total time spent is greater than 50% in coordination of care (as documented) at patient's floor/unit and/or counseling patient: (1) Headache Headache chronicity pattern: acute headache Headache type: unspecified Intractability: not intractable Qualified Code(s): R51 - Headache
[2019-03-13] MEDS: INSULIN HUMAN LISPRO (humaLOG) 100 UNITS/ML VIAL SC SCH ×4 (10:35→20:38)
[2019-03-13] MEDS: POTASSIUM CHLORIDE / WTR 10 MEQ/100 ML PLCT IV SCH ×4 (12:07→15:50)
[2019-03-13 14:30] LABS: Basophils # (auto) 0.01 K/uL (0-0.2); Basophils % (auto) 0.1 %; Hematocrit (blood only) 36.2 % (42-52); Immature Granulocytes # (auto) 0.03 K/uL (0.00-0.02); Immature Granulocytes % (auto) 0.2 %; Lymphocytes # (auto) 1.24 K/uL (1.2-3.4); Lymphocytes % (auto) 9.2 %; Mean Corpuscular Hemoglobin 30.7 pg (25-34); Mean Corpuscular Hgb Conc 35.9 g/dL (32-36); Mean Corpuscular Volume 85.4 fL (80-100); Mean Platelet Volume 9.2 fL (7.4-10.4); Monocytes # (auto) 1.05 K/uL (0.11-0.59); Monocytes % (auto) 7.8 %; Neutrophils # (auto) 11.12 K/uL (1.4-6.5); Neutrophils % (auto) 82.7 %; Platelet Count 328 K/uL (130-400); RDW Coefficient of Variation 11.8 % (11.5-14.5); RDW Standard Deviation 36.7 fL (36.4-46.3); Red Blood Count 4.24 M/uL (4.7-6.1); White Blood Count 13.45 K/uL (4.8-10.8)
[2019-03-13 14:48] LABS: Blood Urea Nitrogen 28 mg/dl (7-18); Carbon Dioxide 25 mmol/L (21-32); Chloride 102 mmol/L (98-107); Est GFR (African American) 77.9; Est GFR (Non-African American) 67.2; Potassium 3.8 mmol/L (3.5-5.1); Sodium 135 mmol/L (136-145)
[2019-03-13 14:49] LABS: BUN Creatinine Ratio 22.6 (10-20); C Reactive Protein < 0.29 mg/dl (0-0.29); Calcium 9.3 mg/dl (8.5-10.1); Creatinine Clr Calc Pharmacy 66.8 ml/min; Glucose 146 mg/dl (70-99)
[2019-03-13 14:53] LABS: Appearance Urine Turbid (Clear); Bacteria Urine Automated Negative (Negative); Bilirubin Urine Negative (Negative); Blood Urine Negative (Negative); Color Urine Dark Yellow; Glucose Urine UA 2+ (Negative); Leukocyte Esterase Urine Trace (Negative); Nitrite Urine Negative (Negative); Protein Urine 2+ (Negative); Specific Gravity Urine 1.031 (1.000-1.030); Urobilinogen Urine Negative (Negative); WBC Urine Automated >30 /hpf (0-5); pH Urine 5.5 (4.5-7.5)
[2019-03-13 15:00] LABS: Ketones Urine 3+ (Negative)
[2019-03-13 15:14] LABS: Amphetamines+Metham, Urine Neg (Neg); Barbiturates, Urine Neg (Neg); Benzodiazepine, Urine Neg (Neg); Cocaine, Urine Neg (Neg); MDMA (Ecstacy), Urine Neg (Neg); Methadone, Urine Neg (Neg); Opiate, Urine Pos (Neg); Phencyclidine, Urine Neg (Neg)
[2019-03-13 15:21] LABS: Mucus Urine Present (None Prsent)
[2019-03-13 15:22] LABS: RBC Urine Automated 0-4 /hpf (0-4)
[2019-03-13] MEDS ORDERED: SUMAtriptan succinate 6 MG/0.5 ML VIAL SQ STA (16:09)
--- NOTE | 2019-03-13 16:31 | Hospitalist Progress Note ---
Date of Service March 13, 2019 Assessment & Plan (1) Confusion: 48yo M PMH T1DM presents with episode of confusion, and altered speech in the setting of fever and nausea/vomiting x1 week. Fever, headache, nausea and vomiting Concern for possible viral versus bacterial infection Febrile to 37.6 at 5:45 AM WBC elevated to 13.4 with left shift POC lactate initially elevated to 1.78, repeat 1.1 ESR 9, CRP less than 0.29, pro Isaiah less than 0.05 Influenza a and B negative Lyme IgG and IgM negative, Western blot pending, anaplasmosis DNA pending Recent gonorrhea/chlamydia/HIV/RPR test also negative Monospot pending Blood cultures x2 pending MRI C-spine to rule out osteomyelitis/abscess/discitis pending Started on Rocephin 2 g daily empirically AMS/speech alteration/headache-improved Likely in the setting of significant dehydration versus infection versus possible TIA Of note: All imaging ordered without contrast as patient and refused due to potential toxicity Note: Patient also taken supplements for illness such as lala bark, charcoal, papaya supplement CT head negative MRI brain: No acute abnormality very small foci of increased signal right occipital lobe MRA neck: Mild irregularity/dilation proximal right ICA likely atherosclerosis MRA head: Negative Troponin negative; EKG: Normal sinus rhythm 74 QTC 4 8 Echo refused, per neurology not needed well Lipids: Tchol elevated at 226. LDL 156, HDL 48, triglycerides 110; HgbA1c 6.5 Ammonia less than 10 UDS positive for marijuana Lyme disease/IgM negative, Western blot pending, b12 and folate normal Neuro-likely symptoms viral induced, possible meningismus without meningitis did not recommend LP/EEG IVF NSS @ 125 Headache Work-up as above Toradol and tramadol as needed Received a dose of sumatriptan 4 mg subcu x1 Zofran prn for nausea Short pauses on telemetry while asleep/resting Increased R to R interval, 3 seconds max, appears to be in sinus arrhythmia Spoke with Dr. Pope, cardiology -monitor, does not appear concerning at this time likely physiologic TSH ordered DM1 Pt on levemir and humalog Levemir 12 units received this morning, 6 units p.m. for BSG greater than 220 o therwise 0 units Humalog SSI Code: Full Dispo: admit to tele DVTP: low risk (2) Episode of change in speech: (3) Headache: (4) Nausea: (5) Diabetes mellitus type 1: (6) Neck pain: Supervising Physician Co-Signing Physician Notes Resident Physician Supervision Note: I was present with Dr. Brandy Bishop during the history and exam. I discussed the case with the resident and agree with the findings and plan as documented in the note. Any exceptions or clarifications are listed here: additional ROS -- no recent obvious tick bites. Pt's concerned that lyme's screen could be falsely negative; she requests Western Blot be sent. Dr Bishop did indeed send this off. Denies any motor weakness or numbness of arms/hands. Denies motor weakness of legs. Typically does not have headaches or migraines; only "rare" headache. Pt and have 2 children; neither have been sick of late. reports patient snores intermittently at home. Exam: gen - lying very still in bed with eyes closed but easily awakens, a/o x3, speech fluent neck - mildly tender over occipital region/upper portion of neck but no nuccal rigidity heart - rosio, s1, s2, no murmur lungs - CTA b/l abd - soft NT ND BS+ no HSM ext - no edema neuro - strength 5/5 x 4 exts; no facial droop skin - no rash; tattoos on back tele - sinus pauses, up to 3 seconds, with sinus arrhythmia; this is occurring while he is resting labs - leukocytosis, 3+ ketones on u/a but no AG acidosis on BMP or reduction in HCO3; lyme's screen negative; MRI brain, MRA head/neck - all noted (right occipital lobe increased signal only - incidental) A/P: 48yo male with infectious clinical picture - leukocytosis, low-grade fevers, report of chills, lack of appetite, nausea, emesis, etc. Also with occipital pain/headache on posterior head and mild neck discomfort. Recent altered mental status - likely metabolic encephalopathy from infectious cause - cannot rule out toxic encephalopathy. Either way mental status is markedly better today. I discussed this gentleman's case with Dr Herrera today as well. Etiology of suspected infection uncertain. Plan - * c-spine MRI (ideally contrast is given but patient declines such) - r/o diskitis, r/o abscess * send western blot for Lyme * check monospot; if negative then EBV titers * 2-view cxr, r/o pneumonia * follow blood cx's and urine cx * rocephin 2gm daily for empiric treatment while awaiting cultures * anaplasmosis DNA sent but clinical picture not entirely consistent with such * treat headache pain * sinus arrhythmia/brief pauses - Dr Bishop to speak with cardiology about this; monitor in meantime extensively updated at bedside today. Pt currently on observation status -- will change to full admit status. Documented By: Александр Bustos MD Subjective This morning patient and reported improvement in mental status. Per patient was having word salad last night around 10 PM and also appeared confused. Patient has been having nausea and vomiting and on and off fever for about a week. 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 He has been unable to keep anything down including fluids for about a week. He reports an intense occipital headache and some neck pain/stiffness as well. Pain is described as throbbing, dull and sharp at times. Denies any vision changes or phonophobia/photophobia. Associated with lightheadedness. He reports having minimal urine output (trickling only) He denies any chest pain, shortness of breath, abdominal pain, diarrhea, constipation, dysuria, hematuria Review of Systems Review of Systems: As per HPI Physical Exam Physical Exam: General: In NAD HEENT: dry oral mucosa Neuro: A&O x 4, Negative kernig and brudzinskis test, strength 5/5 bilateral upper and lower extremities, sensation intact bilateral upper and lower extremities, CN 2-12 intact Pulm: CTAB equal breath sounds bilaterally CV: RRR, no m/r/g, cap refill 3 secs Abdomen:+BS, no TTP in all quadrants, non-distended LE: no LE edema, no calf TTP Results & Data Vital Signs (Past 12 Hours) Vital Signs Temp Pulse Pulse Resp BP BP Pulse Ox 03/13/19 16:07 57 L 03/13/19 15:45 36.8 C 63 18 135/72 99 03/13/19 11:52 37.0 C 63 18 147/74 H 95 03/13/19 08:00 64 03/13/19 07:41 37.4 C 67 18 153/72 H 99 03/13/19 05:45 37.6 C H 62 18 124/54 L 98 03/13/19 05:08 82 18 142/77 H 96 Laboratory Results Abnormal lab results 03/13/19 03/13/19 03/13/19 Range/Units 01:10 01:10 01:11 WBC 11.32 H (4.8-10.8) K/uL RBC (4.7-6.1) M/uL Hgb (14.0-18.0) g/dL Hct 40.8 L (42-52) % MCHC 37.0 H (32-36) g/dL Immature Gran # (Auto) (0.00-0.02) K/uL Neut # (Auto) 9.82 H (1.4-6.5) K/uL Lymph # (Auto) 0.86 L (1.2-3.4) K/uL [place] # (Auto) 0.61 H (0.11-0.59) K/uL Sodium 135 L (136-145) mmol/L BUN 27 H (7-18) mg/dl BUN/Creatinine Ratio (10-20) Glucose 201 H (70-99) mg/dl POC Glucose 209 H (70-99) POC Lactic Acid [place] (0.90-1.70) mmol/L AST 7 L (15-37) U/L Ammonia (11-32) umol/L Urine Appearance (Clear) Ur Specific Tiona (1.000-1.030) Urine Protein (Negative) Urine Glucose (UA) (Negative) Urine Ketones (Negative) Ur Leukocyte Esterase (Negative) Urine WBC (Auto) (0-5) /hpf U Epithel Cells (Auto) (0-5) /lpf Granular Casts (0) /lpf Urine Mucus (None Prsent) Urine Opiates Screen (Neg) U Marijuana (THC) Screen (Neg) 03/13/19 03/13/19 03/13/19 Range/Units 01:18 01:35 06:01 WBC (4.8-10.8) K/uL RBC (4.7-6.1) M/uL Hgb (14.0-18.0) g/dL Hct (42-52) % MCHC (32-36) g/dL Immature Gran # (Auto) (0.00-0.02) K/uL Neut # (Auto) (1.4-6.5) K/uL Lymph # (Auto) (1.2-3.4) K/uL [place] # (Auto) (0.11-0.59) K/uL Sodium (136-145) mmol/L BUN (7-18) mg/dl BUN/Creatinine Ratio (10-20) Glucose (70-99) mg/dl POC Glucose 198 H (70-99) POC Lactic Acid [place] 1.78 H (0.90-1.70) mmol/L AST (15-37) U/L Ammonia < 10.0 L (11-32) umol/L Urine Appearance (Clear) Ur Specific Tiona (1.000-1.030) Urine Protein (Negative) Urine Glucose (UA) (Negative) Urine Ketones (Negative) Ur Leukocyte Esterase (Negative) Urine WBC (Auto) (0-5) /hpf U Epithel Cells (Auto) (0-5) /lpf Granular Casts (0) /lpf Urine Mucus (None Prsent) Urine Opiates Screen (Neg) U Marijuana (THC) Screen (Neg) 03/13/19 03/13/19 03/13/19 Range/Units 10:12 11:38 14:18 WBC 13.45 H (4.8-10.8) K/uL RBC 4.24 L (4.7-6.1) M/uL Hgb 13.0 L (14.0-18.0) g/dL Hct 36.2 L (42-52) % MCHC (32-36) g/dL Immature Gran # (Auto) 0.03 H (0.00-0.02) K/uL Neut # (Auto) 11.12 H (1.4-6.5) K/uL Lymph # (Auto) (1.2-3.4) K/uL [place] # (Auto) 1.05 H (0.11-0.59) K/uL Sodium (136-145) mmol/L BUN (7-18) mg/dl BUN/Creatinine Ratio (10-20) Glucose (70-99) mg/dl POC Glucose 220 H 179 H (70-99) POC Lactic Acid Zur[place] (0.90-1.70) mmol/L AST (15-37) U/L Ammonia (11-32) umol/L Urine Appearance (Clear) Ur Specific Tiona (1.000-1.030) Urine Protein (Negative) Urine Glucose (UA) (Negative) Urine Ketones (Negative) Ur Leukocyte Esterase (Negative) Urine WBC (Auto) (0-5) /hpf U Epithel Cells (Auto) (0-5) /lpf Granular Casts (0) /lpf Urine Mucus (None Prsent) Urine Opiates Screen (Neg) U Marijuana (THC) Screen (Neg) 03/13/19 03/13/19 03/13/19 Range/Units 14:18 15:55 Unknown WBC (4.8-10.8) K/uL RBC (4.7-6.1) M/uL Hgb (14.0-18.0) g/dL Hct (42-52) % MCHC (32-36) g/dL Immature Gran # (Auto) (0.00-0.02) K/uL Neut # (Auto) (1.4-6.5) K/uL Lymph # (Auto) (1.2-3.4) K/uL [place] # (Auto) (0.11-0.59) K/uL Sodium 135 L (136-145) mmol/L BUN 28 H (7-18) mg/dl BUN/Creatinine Ratio 22.6 H (10-20) Glucose 146 H (70-99) mg/dl POC Glucose 127 H (70-99) POC Lactic Acid Zur[place] (0.90-1.70) mmol/L AST (15-37) U/L Ammonia (11-32) umol/L Urine Appearance (Clear) Ur Specific Tiona (1.000-1.030) Urine Protein (Negative) Urine Glucose (UA) (Negative) Urine Ketones (Negative) Ur Leukocyte Esterase (Negative) Urine WBC (Auto) (0-5) /hpf U Epithel Cells (Auto) (0-5) /lpf Granular Casts (0) /lpf Urine Mucus (None Prsent) Urine Opiates Screen Pos H (Neg) U Marijuana (THC) Screen Pos H (Neg) 03/13/19 Range/Units Unknown WBC (4.8-10.8) K/uL RBC (4.7-6.1) M/uL Hgb (14.0-18.0) g/dL Hct (42-52) % MCHC (32-36) g/dL Immature Gran # (Auto) (0.00-0.02) K/uL Neut # (Auto) (1.4-6.5) K/uL Lymph # (Auto) (1.2-3.4) K/uL [place] # (Auto) (0.11-0.59) K/uL Sodium (136-145) mmol/L BUN (7-18) mg/dl BUN/Creatinine Ratio (10-20) Glucose (70-99) mg/dl POC Glucose (70-99) POC Lactic Acid [place] (0.90-1.70) mmol/L AST (15-37) U/L Ammonia (11-32) umol/L Urine Appearance Turbid A (Clear) Ur Specific Tiona 1.031 H (1.000-1.030) Urine Protein 2+ H (Negative) Urine Glucose (UA) 2+ H (Negative) Urine Ketones 3+ H (Negative) Ur Leukocyte Esterase Trace H (Negative) Urine WBC (Auto) >30 H (0-5) /hpf U Epithel Cells (Auto) 5-10 H (0-5) /lpf Granular Casts 1-5 H (0) /lpf Urine Mucus Present A (None Prsent) Urine Opiates Screen (Neg) U Marijuana (THC) Screen (Neg) Medications Administered Current Inpatient Medications Acetaminophen (Tylenol) 650 mg PO Q4H PRN PRN Reason: Pain or Fever Stop: 04/12/19 05:49 Al Hydrox/Mg Hydrox/Simethicone (Maalox) 15 ml PO Q4H PRN PRN Reason: Dyspepsia Stop: 04/12/19 05:49 Sodium Chloride (Nss 1000ml) 1,000 mls @ 125 mls/hr IV .Q8H CARI Stop: 04/12/19 05:49 Last Admin: 03/13/19 14:30 Dose: 125 mls/hr Documented by: Ceftriaxone Sodium 2,000 mg/ (Dextrose) 70 mls @ 100 mls/hr IV Q24H CARI; Protocol Stop: 03/15/19 18:59 Insulin Detemir (Levemir Flextouch) 0 units SC BID CARI Stop: 04/12/19 20:59 Insulin Human Lispro (Humalog) 0 units SC ACHS CARI Stop: 04/12/19 16:29 Last Admin: 03/13/19 16:18 Dose: Not Given Documented by: Magnesium Hydroxide (Milk Of Magnesia) 30 ml PO Q12H PRN PRN Reason: Constipation Stop: 04/12/19 05:49 Morphine Sulfate (Morphine Sulfate) 2 mg IV Q4H PRN PRN Reason: Severe Pain Stop: 03/27/19 06:19 Ondansetron HCl (Zofran) 4 mg IV Q6H PRN PRN Reason: Nausea Stop: 04/12/19 05:49 Last Admin: 03/13/19 17:18 Dose: 4 mg Documented by: Polyethylene Glycol (Miralax Powder Packet) 17 gm PO DAILY PRN PRN Reason: Constipation Stop: 04/12/19 05:49 Tramadol HCl (Ultram) 50 mg PO Q4H PRN PRN Reason: Moderate Pain Stop: 04/12/19 06:19 Last Admin: 03/13/19 12:07 Dose: 50 mg Documented by: Resident Activity Tracking Resident Involvement: Resident Care Provided Care Provided: Adult Hospital Medicine (1) Headache Headache chronicity pattern: acute headache Headache type: unspecified Intractability: not intractable Qualified Code(s): R51 - Headache
[2019-03-13] MEDS: ONDANSETRON INJ 2 MG/ML 2 ML VIAL IV PRN (17:18)
--- NOTE | 2019-03-13 18:22 | Magnetic Resonance Report ---
MR cervical spine wo con CLINICAL HISTORY: headache/neck pain concern for infection TECHNIQUE: Sagittal and axial T1, T2 and STIR images were obtained. COMPARISON STUDY: No previous studies for comparison. There are no suspicious areas of marrow replacement. No intrinsic cervical cord lesions are visualize d. C2-3: There is no evidence of disc bulge or focal herniation. There is no spinal or foraminal stenosi s. C3-4: There is no evidence of disc bulge or focal herniation. There is no spinal or foraminal stenosi s. C4-5: There are no disc bulges or focal herniations. There is no spinal or foraminal stenosis. C5-6 :There are no disc bulges or focal herniations. There is no spinal or foraminal stenosis. C6-7: There is a tiny left paracentral disc protrusion. There is minimal effacement the anterior suba rachnoid space. Significant spinal stenosis is not felt to be present. There is no significant forami nal narrowing. C7-T1: There is no evidence of disc bulge or focal herniation. There is no evidence of spinal or fora kaet stenosis. IMPRESSION: 1. Tiny left paracentral disc protrusion at the C6-7 level. 2. Otherwise unremarkable MRI of the cervical spine. Electronically signed by: Joss Lira M.D. 03/13/2019 6:20 PM
[2019-03-13] MEDS: cefTRIAXone SODIUM 2,000 MG in DEXTROSE 5% 50 ML IV SCH (19:40)
[2019-03-13] MEDS: INSULIN DETEMIR FLEXPEN/FLEX TOUCH 100 UNITS/ML 3ML SC SCH (20:37)
[2019-03-14] MEDS: SODIUM CHLORIDE 0.9% 1000ML 1,000 ML IV SCH ×4 (00:14→20:50)
[2019-03-14] MEDS: KETOROLAC 30 MG/ML VIAL IV PRN ×2 (05:51→15:21)
[2019-03-14 06:04] LABS: Basophils # (auto) 0.01 K/uL (0-0.2); Basophils % (auto) 0.1 %; Eosinophils # (auto) 0.01 K/uL (0-0.5); Eosinophils % (auto) 0.1 %; Hematocrit (blood only) 35.1 % (42-52); Hemoglobin 12.4 g/dL (14.0-18.0); Immature Granulocytes # (auto) 0.01 K/uL (0.00-0.02); Immature Granulocytes % (auto) 0.1 %; Lymphocytes # (auto) 1.41 K/uL (1.2-3.4); Lymphocytes % (auto) 14.2 %; Mean Corpuscular Hemoglobin 30.2 pg (25-34); Mean Corpuscular Hgb Conc 35.3 g/dL (32-36); Mean Corpuscular Volume 85.6 fL (80-100); Mean Platelet Volume 9.6 fL (7.4-10.4); Monocytes # (auto) 0.72 K/uL (0.11-0.59); Monocytes % (auto) 7.3 %; Neutrophils # (auto) 7.77 K/uL (1.4-6.5); Neutrophils % (auto) 78.2 %; Platelet Count 323 K/uL (130-400); RDW Coefficient of Variation 11.6 % (11.5-14.5); RDW Standard Deviation 36.5 fL (36.4-46.3); White Blood Count 9.93 K/uL (4.8-10.8)
[2019-03-14 06:40] LABS: BUN Creatinine Ratio 19.3 (10-20); Calcium 8.5 mg/dl (8.5-10.1); Creatinine Clr Calc Pharmacy 70.8 ml/min; Est GFR (African American) 83.5; Potassium 4.5 mmol/L (3.5-5.1)
[2019-03-14 06:45] LABS: Albumin Globulin Ratio 0.9 (0.9-2); Bilirubin,Total 0.6 mg/dl (0.2-1); Globulin 3.3 gm/dl (2.5-4.0); Thyroid Stimulating Hormone 0.207 uIu/ml (0.300-4.500); Total Protein 6.3 gm/dl (6.4-8.2)
[2019-03-14] MEDS: INSULIN HUMAN LISPRO (humaLOG) 100 UNITS/ML VIAL SC SCH ×4 (09:12→20:48)
[2019-03-14] MEDS: INSULIN DETEMIR FLEXPEN/FLEX TOUCH 100 UNITS/ML 3ML SC SCH ×2 (09:13→20:47)
--- NOTE | 2019-03-14 10:50 | XRay Report ---
XR chest 2V PA/lateral HISTORY: Cough. COMPARISON: None. FINDINGS: The lungs are clear. Cardiac silhouette is normal in size. No pleural effusions. No pneumot horax. IMPRESSION: No acute process. Electronically signed by: Amanuel Hidalgo M.D. 03/14/2019 10:48 AM
[2019-03-14] MEDS: ONDANSETRON INJ 2 MG/ML 2 ML VIAL IV PRN (15:20)
[2019-03-14] MEDS: cefTRIAXone SODIUM 2,000 MG in DEXTROSE 5% 50 ML IV SCH (19:36)
--- NOTE | 2019-03-14 20:08 | Hospitalist Progress Note ---
Date of Service March 14, 2019 Assessment & Plan (1) Confusion: 48yo M PMH T1DM presents with episode of confusion, and altered speech in the setting of fever and nausea/vomiting x1 week. Fever, headache, nausea and vomiting -improving Concern for possible viral versus bacterial infection Febrile to 37.6 at 5:45 AM on 03/13 WBC elevated to 13.4 with left shift -normalized this morning to 9.9 POC lactate initially elevated to 1.78, repeat 1.1 ESR 9, CRP less than 0.29, pro Isaiah less than 0.05 Influenza a and B negative Lyme IgG and IgM negative, Western blot pending, anaplasmosis DNA pending Recent gonorrhea/chlamydia/HIV/RPR test also negative Monospot negative Blood cultures x2 no growth to date, urine culture negative MRI C-spine to rule out osteomyelitis/abscess/discitis -tiny left paracentral disc protrusion C6-C7 Started on Rocephin 2 g daily empirically pending 48-hour culture results AMS/speech alteration/headache-improved Likely in the setting of significant dehydration versus infection versus possible TIA Of note: All imaging ordered without contrast as patient and refused due to potential toxicity Note: Patient also taken supplements for illness such as lala bark, charcoal, papaya supplement CT head negative MRI brain: No acute abnormality very small foci of increased signal right occipital lobe MRA neck: Mild irregularity/dilation proximal right ICA likely atherosclerosis MRA head: Negative Troponin negative; EKG: Normal sinus rhythm 74 QTC 4 8 Echo refused, per neurology not needed well Lipids: Tchol elevated at 226. LDL 156, HDL 48, triglycerides 110; HgbA1c 6.5 Ammonia less than 10 UDS positive for marijuana Lyme disease/IgM negative, Western blot pending, b12 and folate normal Neuro-likely symptoms viral induced, possible meningismus without meningitis did not recommend LP/EEG IVF NSS @ 125 Headache Work-up as above Toradol and tramadol as needed Received a dose of sumatriptan 4 mg subcu x1 Zofran prn for nausea Short pauses on telemetry while asleep/resting; concern for possible CAD Increased R to R interval, 3 seconds max, appears to be in sinus arrhythmia Spoke with Dr. Pope, cardiology -monitor, does not appear concerning at this time likely physiologic EKG: Concern for flat T waves in inferior leads, possible early coronary artery disease specially given history of DM 1 Repeat EKG ordered for the morning and recommend outpatient follow-up for echo/stress test TSH 0. 207, normal free T4 Follow-up outpatient in about 6 weeks DM1 Pt on levemir and humalog -patient prefers to administer her own insulin while in the hospital Nursing advised to continue a ACHS BSG's Code: Full Dispo: admit to tele DVTP: low risk (2) Episode of change in speech: (3) Headache: (4) Nausea: (5) Diabetes mellitus type 1: (6) Neck pain: Supervising Physician Co-Signing Physician Notes Resident Physician Supervision Note: I was present with Dr. Brandy Bishop during the history and exam. I discussed the case with the resident and agree with the findings and plan as documented in the note. Any exceptions or clarifications are listed here: none. Pt feeling significantly better. Able to eat breakfast and keep it down. Reports prior dx of gastroparesis. Tele with episodes of intermittent widening R-R/pauses -- NO SYMPTOMS FROM SUCH. Exam: gen - looks much better today; a/o x 3; nontoxic neck - NO nuccal rigidity or meningismus heart - rosio, s1, s2, no murmur lungs - CTA b/l abd - soft NT ND BS+ no HSM neuro - strength 5/5 x 4 exts Cervical spine MRI - neg for abscess/diskitis blood cx's neg to date monospot neg urine cx neg A/P: 48yo male with infectious clinical picture - leukocytosis, low-grade fevers, report of chills, lack of appetite, nausea, emesis, etc. Exact etiology uncertain but IMPROVED. Viral? tick-borne? Cultures thus far negative. Occipital pain/headache on posterior head and mild neck discomfort - improved. No signs of meningitis/encephalitis. Recent altered mental status - likely metabolic encephalopathy from infectious cause - resolved. T1DM - patient managing his own DM; control fair/acceptable in setting of physical stress from resolving infection. CXR obtained this am - no evidence of pneumonia. extensively updated by phone today; all questions answered. If cultures remain negative, tele stable, labs ok tomorrow am, and he feels well/eating ok -- can likely d/c home Wed am with close outpatient f/u. Documented By: Александр Bustos MD Subjective This morning patient reports significant improvement and feels better hydrated. Reports constant headache improved now only has some throbbing occipital discomfort/headache when sits up or moves around but not as intense overall. Appetite has improved and he was able to keep down breakfast without having any nausea or vomiting. Reports no vomiting since a small 1 last night and not nauseous this morning. Denies any abdominal pain. He denies any chest pain, shortness of breath, abdominal pain, diarrhea, constipation, dysuria, hematuria Review of Systems Review of Systems: As per HPI Physical Exam Physical Exam: General: In NAD HEENT: Somewhat dry oral mucosa Neuro: A&O x 4 Pulm: CTAB equal breath sounds bilaterally CV: RRR, no m/r/g, refill 3 seconds Abdomen:+BS, no TTP in all quadrants, non-distended LE: no LE edema, no calf TTP Results & Data Vital Signs (Past 12 Hours) Vital Signs Temp Pulse Pulse Resp BP BP Pulse Ox 03/14/19 19:34 37.3 C 57 L 20 160/81 H 98 03/14/19 16:00 76 03/14/19 15:03 37.3 C 51 L 19 121/68 96 03/14/19 11:29 37.2 C 66 18 147/71 H 96 03/14/19 10:04 77 03/14/19 08:36 37.4 C 74 20 149/70 H 96 Resident Activity Tracking Resident Involvement: Resident Care Provided Care Provided: Adult Hospital Medicine (1) Headache Headache chronicity pattern: acute headache Headache type: unspecified Intractability: not intractable Qualified Code(s): R51 - Headache
--- NOTE | 2019-03-14 23:08 | Billing Data ---
Coding Level of Care Code 41706 Subseq Hosp Care Lvl 3
[2019-03-15] MEDS: KETOROLAC 30 MG/ML VIAL IV PRN ×4 (00:57→21:05)
[2019-03-15] MEDS: SODIUM CHLORIDE 0.9% 1000ML 1,000 ML IV SCH ×3 (04:56→21:05)
[2019-03-15 07:47] LABS: Basophils # (auto) 0.03 K/uL (0-0.2); Basophils % (auto) 0.4 %; Eosinophils # (auto) 0.05 K/uL (0-0.5); Eosinophils % (auto) 0.6 %; Hemoglobin 12.9 g/dL (14.0-18.0); Immature Granulocytes # (auto) 0.01 K/uL (0.00-0.02); Immature Granulocytes % (auto) 0.1 %; Lymphocytes # (auto) 1.77 K/uL (1.2-3.4); Lymphocytes % (auto) 22.3 %; Mean Corpuscular Hemoglobin 30.6 pg (25-34); Mean Corpuscular Hgb Conc 35.8 g/dL (32-36); Mean Corpuscular Volume 85.3 fL (80-100); Mean Platelet Volume 9.4 fL (7.4-10.4); Monocytes # (auto) 0.72 K/uL (0.11-0.59); Monocytes % (auto) 9.1 %; Neutrophils # (auto) 5.37 K/uL (1.4-6.5); Neutrophils % (auto) 67.5 %; Platelet Count 327 K/uL (130-400); RDW Coefficient of Variation 11.8 % (11.5-14.5); RDW Standard Deviation 36.3 fL (36.4-46.3); Red Blood Count 4.22 M/uL (4.7-6.1); White Blood Count 7.95 K/uL (4.8-10.8)
[2019-03-15 08:25] LABS: BUN Creatinine Ratio 14.2 (10-20); Calcium 8.8 mg/dl (8.5-10.1); Creatinine Clr Calc Pharmacy 73.9 ml/min; Est GFR (Non-African American) 75.9
[2019-03-15] MEDS: ONDANSETRON INJ 2 MG/ML 2 ML VIAL IV PRN ×2 (09:25→16:46)
[2019-03-15] MEDS: INSULIN HUMAN LISPRO (humaLOG) 100 UNITS/ML VIAL SC SCH ×4 (09:27→20:42)
[2019-03-15] MEDS: INSULIN DETEMIR FLEXPEN/FLEX TOUCH 100 UNITS/ML 3ML SC SCH ×2 (09:29→20:42)
--- NOTE | 2019-03-15 09:58 | Neurology Progress Note ---
Date of Service March 15, 2019 Assessment & Plan (1) Headache: (2) Episode of change in speech: (3) Confusion: (4) Nausea: Patient has had a significant viral/flu-like illness for the last week with nausea, vomiting, occipital headache (which radiates bifrontotemporally, lightheadedness and dehydration. He has been fatigued and sleepy missing work. He was admitted the morning of March 13 with an episode of some confusion and word-finding difficulties of a nonspecific nature. He was dehydrated on admission and his mental status and speech are back to baseline without any focal neurologic signs or meningeal signs. I suspected he has a bit of meningismus clinically, although I could not entirely exclude a mild viral meningitis. He remained fatigued and lightheaded with standing. MRI of the brain showed no acute stroke. There was 2 or 3 tiny, nonspecific, old white matter spots in the right occipital head region. No significant vascular anomalies were noted with MR angiography of the head or neck. He still has a significant headache with nausea, vomiting, and mild phonophobia. He has a history of low back pain recently, which is not a significant problem currently. Today he has increased in headache again with some meningismus without meningitis. His neck is quite supple. There is a migrainous component to this headache also. He gets increased headache and lightheaded with sitting up too long. Neurologic examination is otherwise nonfocal and he has no encephalopathy either. This morning, was the bathroom vomiting he had atrial fibrillation and a poor significant pause in his cardiac rhythm. Additional history suggests that he has passed out after vomiting in the past. Therefore his headaches are a mix of migrainous and non migrainous features likely multifactorial in origin. A viral illness could give these types of headaches as could neck pain/meningismus. He has a C6-7 disc bulge and some chronic neck pain. Could be possible that he is withdrawing from some substance (note positive, unexplained, opiates in initial urine tox screen). Nausea and vomiting could trigger headaches and the stress of the entire illness could bring on migraines. Recommendations: 1. Hydrate as you are doing. 2. Treat headache with nonsteroidal anti-inflammatory medication. Consider 4 mg sumatriptan injection subcutaneously, since he has some migrainous components to his headache. Avoid opiates. 3. Increase activity as able. Otherwise I have no further neurologic testing or treatment recommendations to make at this time. I do not believe he needs a lumbar puncture or EEG at this time. 4. Echocardiogram and consider Cardiology evaluation because of his dysrhythmia. 5. Consider methocarbamol or other muscle relaxer for his neck. Overall, I spent a total of 65 minutes with this case including review of records, review of MRI films, direct evaluation the patient at bedside, and discussion of the case with the patient and his at bedside, and Dr. Bustos, including differential diagnosis and treatment options. Subjective Patient had a good day yesterday with less headache. He did have some intermittent very low-grade fever. Today, patient has been afebrile but has had increased headache. Sometime before non o'clock in the morning he went to the bathroom to throw up. While in the bathroom he had 2-3 minute paroxysmal run of atrial fibrillation in the 176. At 9:07 he had a 2.9 second pause in his cardiac rhythm. He did not have any of these abnormal rhythms earlier in the hospitalization although he occasionally has had some brief pauses. Hemoglobin A1c was 6.5. He describes his headache as a dull bitemporal throbbing pain with occasional sharp shooting pains. He has no photophobia but possibly sonophobia. He has had nausea and vomiting. His neck feels tight but can move. He has no symptoms in his limbs. Urine tox screen in the emergency room was positive for opiates and marijuana. The only falls positive for opiates that we are aware is from poppy ssed ingestion (and the patient denies this). He was taking lala bark liquid, the vitamin-D, Omegas, NMN, and risveratrol as supplementation recently. He denied taking any opiates. However, 1 month ago he participated in a ceremony using psilocybine (hallucinogenic ingredient found and mushroom) as well as smoking marijuana 1 to 2 times a week as part of ceremony (as a member of the [employer]). 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 He has neck pain an MRI of the cervical spine this hospitalization showed a tiny left disc protrusion centrally at C6-7. Physical Exam Physical Exam: The patient is awake, alert, and attentive, with normal speech and communication. The patient is fully oriented, has a normal mood and affect, and has intact long and short term memory. Extraocular eye muscles are intact without nystagmus. Facial strength and symmetry is normal bilaterally. Facial sensation is normal bilaterally in all 3 divisions of the fifth cranial nerve. Tongue is midline with normal strength bilaterally. Pupils are 4 millimeters bilaterally reactive to light. Gait is normal. Coordination of the arms is normal, without tremor or ataxia bilaterally. Motor strength is 5/5 in all major muscle groups of the arms and legs bilaterally, both proximally and distally. Muscle tone is normal in the limbs, without rigidity or spasticity. Reflexes are 2/4 in all 4 limbs both proximally and distally. Sensation seems intact in all 4 limbs. Results & Data Vital Signs (Past 12 Hours) Vital Signs Temp Pulse Pulse Resp BP BP Pulse Ox 03/15/19 07:25 36.7 C 61 18 158/81 H 96 03/15/19 03:06 36.7 C 66 19 155/68 H 93 03/15/19 00:30 71 03/14/19 23:06 37.0 C 68 19 149/75 H 98 PG Care Time/CCT Total # of Minutes Spent Total Time Spent with Patient: Total time spent is greater than 50% in coordination of care (as documented) at patient's floor/unit and/or counseling patient: (1) Headache Headache chronicity pattern: acute headache Headache type: unspecified Intra ctability: not intractable Qualified Code(s): R51 - Headache
--- NOTE | 2019-03-15 11:25 | Cardiology Consultation ---
Date of Consultation March 15, 2019 Assessment & Plan (1) Atrial fibrillation: 48 yo M PMHx DM1 presents with new-onset atrial fibrillation in the setting of emesis - Echocardiogram 03/15/19 showed mild mitral and tricuspid regurgitation, normal LV function, no wall motion abnormalities, normal 65-70%. - CHADS-VASc score of 1 for history of diabetes. Would be score of 2 however pt self-reports normotensive at home. - Would recommend starting low-dose metoprolol tartrate twice daily. - Have advised pt to follow up with Dr. Martinez in one month and in that time monitor blood pressure to help determine if truly hypertensive. - If hypertensive will consider anticoagulation at that time. Present on Admission?: No (2) Diabetes mellitus type 1: - Continue home monitoring of sugars and insulin regimen. Present on Admission?: Yes Supervising Physician Co-Signing Physician Notes I was present with the above resident, Dr. Lopez, during the history and physical examination of this patient. I have personally performed the physical exam and assisted in decision making activities related to the patients care. I have reviewed and agree with the findings and plan as documented in Dr. Lopezs note. Any exceptions or clarifications are listed here: None Assessment and plan: 1. Sinus pause-occurred during an episode of emesis. This is most likely from vagal outflow. No indication for permanent pacemaking. 2. New onset atrial fibrillation-also occurred during an episode of emesis. Question vagally mediated atrial fibrillation. As above, we will decide on long-term anticoagulation in the outpatient setting. 3. Possible hypertension-as above, patient will tract this closely at home. Will start low-dose metoprolol tartrate. History of Present Illness Requesting Physician: Brandy Bishop MD Attending Physician: Александр Bustos History of Present Illness 48 yo M PMHx DM1 presented for AMS and slurred speech, found not to have acute intracranial pathology. During admission during an episode of emesis had 2.9 second pause, and during another episode had a run of AFib. Cardiology consulted for new-onset AFib and Echocardiogram ordered. On interview today pt reports that he has been diabetic since age 2, sugars run normal at home without highs or lows on insulin. States that his blood pressure tends to run high in doctor's offices however home BPs run 120s/70s. States that when he has episodes of emesis in his life he has "had the sensation of heart flutters and sometimes have passed out due to vomiting". Otherwise able to perform all ADLs and can walk multiple blocks and climb multiple sets of stairs without dyspnea, denies orthopnea, no leg edema. Complaining of headache and francis e nausea in the room. Has been nauseated and having episodes of vomiting since last Wednesday. Has not been able to eat much in that time due to nausea. Has not followed with a wire strander in the past. Allergies Allergy/AdvReac Type Severity Reaction Status Date / Time No Known Allergies Allergy Verified 03/13/19 01:33 Home Medications Home Medications Medication Instructions Recorded Confirmed Type omega 1-jhl-djv-fish oil [Fish Oil] 1 cap PO DAILY 03/16/18 03/13/19 History insulin lispro 100) 100 unit/mL 6 - 7 units SUBCUT DAILY #30 ml 09/22/18 03/13/19 Rx subcutaneous solution sildenafil 100 mg tablet 100 mg PO DAILY PRN #6 tab 01/03/19 03/13/19 Rx insulin detemir U-100 [Levemir 6 SUBCUT BID 03/13/19 History U-100 Insulin] Patient History Family History Grandfather Myocardial infarction Father Heart disease Social History Preferred Language: Swedish Communication Ability: Effective Visual Impairment: Limited Hearing Ability: Normal Road Monkey Required: No Beliefs That Will Affect Care: None Current Living Situation: Significant Other current occupation: Chiropractor Feels Safe at Home: Yes Smoking Status: Former smoker Age Quit Using Tobacco: 23 ; Second Hand Exposure: Yes (mother smoked) ; Hx Alcohol Use: No Hx Substance Use: No Childhood Exposure to Second-Hand Smoke: Yes Dental Care, Regularly: Yes Physical Activity Frequency: Daily Seatbelt Use: always Sunscreen Use: No Review of Systems Constitutional: no fever, no chills and no malaise Respiratory: no cough and no dyspnea Cardiovascular: no chest pain, no palpitations (a time of interview. As per HPI.), no syncope (as per HPI.) and no edema Gastrointestinal: + nausea; no abdominal pain Physical Exam Constitutional: WD/WN, vitals as above Respiratory: normal respiratory effort, lungs clear to auscultation Cardiovascular: RRR, no murmur, no edema Gastrointestinal (Abdomen): normal bowel sounds, soft, nontender, no hepatosplenomegaly Skin: no rashes, warm and dry Psychiatric: A+Ox3, euthymic affect Results & Data Vital Signs (Past 12 Hours) Vital Signs Temp Pulse Pulse Resp BP BP Pulse Ox 03/15/19 07:25 36.7 C 61 18 158/81 H 96 03/15/19 03:06 36.7 C 66 19 155/68 H 93 03/15/19 00:30 71 Laboratory Results Laboratory Results - last 24 hr 03/14/19 03/14/19 03/15/19 16:38 20:17 07:20 WBC 7.95 RBC 4.22 L Hgb 12.9 L Hct 36.0 L MCV 85.3 MCH 30.6 MCHC 35.8 RDW Std Deviation 36.3 L RDW Coeff of Radha 11.8 Plt Count 327 MPV 9.4 Immature Gran % (Auto) 0.1 Neut % (Auto) 67.5 Lymph % (Auto) 22.3 [place] % (Auto) 9.1 Eos % (Auto) 0.6 Baso % (Auto) 0.4 Immature Gran # (Auto) 0.01 Neut # (Auto) 5.37 Lymph # (Auto) 1.77 [place] # (Auto) 0.72 H Eos # (Auto) 0.05 Baso # (Auto) 0.03 Sodium Potassium Chloride Carbon Dioxide Anion Gap BUN Creatinine Est Cr Clr Drug Dosing Est GFR ( Amer) Est GFR (Non-Af Amer) BUN/Creatinine Ratio Glucose POC Glucose 135 H 154 H Calcium Magnesium 03/15/19 03/15/19 03/15/19 07:20 07:20 07:44 WBC RBC Hgb Hct MCV MCH MCHC RDW Std Deviation RDW Coeff of Radha Plt Count MPV Immature Gran % (Auto) Neut % (Auto) Lymph % (Auto) [place] % (Auto) Eos % (Auto) Baso % (Auto) Immature Gran # (Auto) Neut # (Auto) Lymph # (Auto) [place] # (Auto) Eos # (Auto) Baso # (Auto) Sodium 136 Potassium 4.0 Chloride 104 Carbon Dioxide 27 Anion Gap 5.0 BUN 16 Creatinine 1.13 Est Cr Clr Drug Dosing 73.9 Est GFR ( Amer) 88.0 Est GFR (Non-Af Amer) 75.9 BUN/Creatinine Ratio 14.2 Glucose 99 POC Glucose 88 Calcium 8.8 Magnesium 1.8 03/15/19 11:50 WBC RBC Hgb Hct MCV MCH MCHC RDW Std Deviation RDW Coeff of Radha Plt Count MPV Immature Gran % (Auto) Neut % (Auto) Lymph % (Auto) [place] % (Auto) Eos % (Auto) Baso % (Auto) Immature Gran # (Auto) Neut # (Auto) Lymph # (Auto) [place] # (Auto) Eos # (Auto) Baso # (Auto) Sodium Potassium Chloride Carbon Dioxide Anion Gap BUN Creatinine Est Cr Clr Drug Dosing Est GFR ( Amer) Est GFR (Non-Af Amer) BUN/Creatinine Ratio Glucose POC Glucose 97 Calcium Magnesium Diagnostic Findings Echocardiogram 03/15/19: mild mitral and tricuspid regurgitation, normal LV function, no wall motion abnormalities, normal 65-70%. Medications Administered Current Medications Acetaminophen (Tylenol) 650 mg PO Q4H PRN PRN Reason: Pain or Fever Stop: 04/12/19 05:49 Al Hydrox/Mg Hydrox/Simethicone (Maalox) 15 ml PO Q4H PRN PRN Reason: Dyspepsia Stop: 04/12/19 05:49 Diphenhydramine HCl (Benadryl Capsule) 25 mg PO HS PRN PRN Reason: Insomnia Stop: 04/13/19 20:35 Last Admin: 03/14/19 20:47 Dose: 25 mg Documented by: Sodium Chloride (Nss 1000ml) 1,000 mls @ 125 mls/hr IV .Q8H [facility] Stop: 04/12/19 05:49 Last Infusion: 03/15/19 13:16 Dose: Infused Documented by: Ceftriaxone Sodium 2,000 mg/ (Dextrose) 70 mls @ 100 mls/hr IV Q24H [facility]; Protocol Stop: 03/15/19 18:59 Last Infusion: 03/14/19 20:20 Dose: Infused Documented by: Insulin Detemir (Levemir Flextouch) 0 units SC BID [facility] Stop: 04/12/19 20:59 Last Admin: 03/15/19 09:29 Dose: 12 units Documented by: Insulin Human Lispro (Humalog) 0 units SC ACHS [facility] Stop: 04/12/19 16:29 Last Admin: 03/15/19 12:35 Dose: Not Given Documented by: Ketorolac Tromethamine (Toradol) 30 mg IV Q6H PRN PRN Reason: Pain Stop: 03/18/19 18:59 Last Admin: 03/15/19 09:30 Dose: 30 mg Documented by: Magnesium Hydroxide (Milk Of Magnesia) 30 ml PO Q12H PRN PRN Reason: Constipation Stop: 04/12/19 05:49 Ondansetron HCl (Zofran) 4 mg IV Q6H PRN PRN Reason: Nausea Stop: 04/12/19 05:49 Last Admin: 03/15/19 09:25 Dose: 4 mg Documented by: Polyethylene Glycol (Miralax Powder Packet) 17 gm PO DAILY PRN PRN Reason: Constipation Stop: 04/12/19 05:49 PG Care Time/CCT Total # of Minutes Spent Total Time Spent with Patient: Total time spent is greater than 50% in coordination of care (as documented) at patient's floor/unit and/or counseling patient: Resident Activity Tracking Resident Involvement: Resident Care Provided Care Provided: Adult Hospital Medicine
[2019-03-15] MEDS ORDERED: CYCLOBENZAPRINE HCL 5 MG TAB PO ONE (11:41)
[2019-03-15] MEDS ORDERED: SUMAtriptan succinate 6 MG/0.5 ML VIAL SQ STA (11:45)
--- NOTE | 2019-03-15 17:15 | Hospitalist Progress Note ---
Date of Service March 15, 2019 Assessment & Plan (1) Atrial fibrillation: During vomiting episode around 8:47 AM , 03/15/19 patient went into A. fib rate 174 for about 2 to 3 minutes Previous history of syncope during vomiting episodes -likely had arrhythmia in the past Patient also having short 2 to 3-second pauses Echo: EF 65 to 70%, mild MR and TR, left atrium mildly dilated, no wall motion abnormalities TSH 0. 207, normal free T4 EKG: Concern for flat T waves in inferior and lateral leads, possible early coronary artery disease specially given history of DM 1, rate 64 NSR QTC 400 Cardiology consulted: Recommended starting on metoprolol Not concerned about pauses Started on metoprolol 12.5 mg twice daily No anticoagulation initiated at this time CHADsVASC score 1 for DM 1, patient reports BP well controlled at home however if patient is noted to also have hypertension in the outpatient setting/home will likely require anticoagulation Follow-up with cardiology outpatient Continue to monitor on telemetry (2) Headache: AMS/speech alteration/headache-headache persists however speech/AMS improved Likely in the setting of significant dehydration versus infection versus possible TIA Of note: All imaging ordered without contrast as patient and refused due to potential toxicity Note: Patient also taken supplements for illness such as lala bark, charcoal, papaya supplement CT head negative MRI brain: No acute abnormality very small foci of increased signal right occipital lobe MRA neck: Mild irregularity/dilation proximal right ICA likely atherosclerosis MRA head: Negative Troponin negative; EKG: Normal sinus rhythm 74 QTC 4 8 Lipids: Tchol elevated at 226. LDL 156, HDL 48, triglycerides 110; HgbA1c 6.5 Ammonia less than 10 UDS positive for marijuana and opiates however patient had received morphine in the ED prior to U tox collection Lyme disease/IgM negative, Western blot pending, b12 and folate normal Neuro-likely symptoms viral induced, possible meningismus without meningitis did not recommend LP/EEG On Toradol Received second dose of sumatriptan today Zofran prn for nausea (3) Diabetes mellitus type 1: Pt on levemir and humalog -patient prefers to administer her own insulin while in the hospital Nursing advised to continue a ACHS BSG's (4) Vomitinyo M PMH T1DM presents with episode of confusion, and altered speech in the setting of fever and nausea/vomiting x1 week. Fever, headache, nausea and vomiting -fever resolved however continues to have headache and N/V Concern for likely viral etiology versus possible tickborne illness Afebrile since 03/13 WBC elevated to 13.4 with left shift -normalized POC lactate initially elevated to 1.78, repeat 1.1 ESR 9, CRP less than 0.29, pro Isaiah less than 0.05 Influenza a and B negative Lyme IgG and IgM negative, Western blot pending, anaplasmosis DNA pending Recent gonorrhea/chlamydia/HIV/RPR test also negative Monospot negative Blood cultures x2 no growth to date, urine culture negative MRI C-spine to rule out osteomyelitis/abscess/discitis -tiny left paracentral disc protrusion C6-C7 Started on Rocephin 2 g daily empirically DCed 03/15 given negative cultures Discussed starting on empiric treatment for tickborne illness given testing pending. Patient decided to hold off at this time given doxycycline could make GI symptoms worse FEN/GI: IVF 50 cc/h Code: Full This position: Home pending clinical improvement Supervising Physician Co-Signing Physician Notes Resident Physician Supervision Note: I was present with Dr. Brandy Bishop during the history and exam. I discussed the case with the resident and agree with the findings and plan as documented in the note. Any exceptions or clarifications are listed here: none. Pt continues with poor appetite, occipital headache (although it improved w/ SC imitrex this am), nausea, emesis (this am). Had PAF this am - 2-3 min - converted to NSR quickly. Has had episodes of palpitations in the past. Overall just doesn't feel well. Mentation continues to be normal. Denies any abdominal pain. Still having occasional episodes of brief vertigo as well. vitals - BPs elevated, sinus rosio (intermittent) tele - short pauses, PAF this am gen - nontoxic; looks better than previous exams neck - no rigidity or meningismus lymph - no cervical, axillary, or inguinal LAD b/l mouth - no sores, ulcers, or thrush; MMM heart - rosio, s1 s2, no murmur lungs - CTA b/l abd - soft no HSM nt nd ext - no edema musculo - no pain or tenderness over c-spine or t-spine to palpation; no joint effusions skin - no rash labs - BMP wnl; Cr 1.1 today blood cx's neg x 48 hours lyme western blot pending anaplasmosis DNA pending A/P: 1. headache - migraine? related to illness? other? EXTENSIVE w/u - cultures, labs, imaging studies - all negative or normal (old right occipital lobe abnormality on MRI brain but not felt relevant by neurology). Treat underlying illness. Imitrex prn. No signs or symptoms to suggest meningitis; no plans for LP. 2. nausea/vomiting - ongoing. related to migraine-type headache? related to illness? cannibis hyperemesis syndrome? gastroparesis? combination of factors? biliary in etiology? treat symptoms. if these symptoms persist consider RUQ u/s - r/o gallstones/biliary tract disease. Consider CT abd/pelvis. Consider repeat LFTs w/ lipase. no evidence of UTi. no evidence of bacteremia. doubt tick-borne disease causing these symptoms. 3. T1DM - control satisfactory; patient is managing on own. 4. PAF - appreciate cardiology consult. Echo with preserved EF. LA mildly dilated. no overt hyperthyroid state. past episodes of palpitations may have been due to PAF. Start BB. CHADS-VASc is borderline for initiation of anticoagulation. If he is felt to have HTN then anticoagulation likely indicated. To be discussed as outpatient. Cont tele. 5. reduce IVF rate. /patient extensively updated at bedside today. Documented By: Александр Bustos MD Subjective Patient reported feeling worse this morning and more tired. Did not have much of an appetite and vomited once this morning prior to eating breakfast. Also reported return of occipital headache. Also complaining of episodes of vertigo which are brief and not necessarily related to position changes. Telemetry: During vomiting episode around 8:47 AM today patient went into A. fib rate 174 for about 2 to 3 minutes. Patient denied any palpitations during the episode however reported vomiting pretty intensely at the time. Patient later had a 3-second pause again around 9 AM. Patient reports previous episodes of syncope due to intense vomiting in the past. Denied any fever, chills, chest pain, abdominal pain, diarrhea, constipation, dysuria. Review of Systems Review of Systems: As per HPI Physical Exam Physical Exam: General: In NAD HEENT: MMM Neuro: A&O x 4, strength 5/5 bilateral upper and lower extremities, sensation intact bilateral upper and lower extremities, CN 2-12 intact Pulm: CTAB equal breath sounds bilaterally CV: RRR, no m/r/g, cap refill 2 secs Abdomen:+BS, no TTP in all quadrants, non-distended LE: no LE edema, no calf TTP Results & Data Vital Signs (Past 12 Hours) Vital Signs Temp Pulse Resp BP BP Pulse Ox 03/15/19 15:15 36.7 C 58 L 19 164/74 H 98 03/15/19 07:25 36.7 C 61 18 158/81 H 96 Laboratory Results Abnormal lab results 03/14/19 03/15/19 03/15/19 Range/Units 20:17 07:20 16:31 RBC 4.22 L (4.7-6.1) M/uL Hgb 12.9 L (14.0-18.0) g/dL Hct 36.0 L (42-52) % RDW Std Deviation 36.3 L (36.4-46.3) fL [place] # (Auto) 0.72 H (0.11-0.59) K/uL POC Glucose 154 H 118 H (70-99) Resident Activity Tracking Resident Involvement: Resident Care Provided Care Provided: Adult Hospital Medicine (1) Headache Headache chronicity pattern: acute headache Headache type: unspecified Intractability: not intractable Qualified Code(s): R51 - Headache
[2019-03-15] MEDS ORDERED: MAGNESIUM SULFATE / D5W 1 GM/100 ML BAG IV ONE (19:00)
[2019-03-15] MEDS: METOPROLOL TARTRATE 25 MG TAB PO SCH (20:41)
[2019-03-16] MEDS: SODIUM CHLORIDE 0.9% 1000ML 1,000 ML IV SCH (04:35)
[2019-03-16] MEDS: ONDANSETRON INJ 2 MG/ML 2 ML VIAL IV PRN (07:24)
[2019-03-16] MEDS: METOPROLOL TARTRATE 25 MG TAB PO SCH (07:53)
[2019-03-16] MEDS: INSULIN DETEMIR FLEXPEN/FLEX TOUCH 100 UNITS/ML 3ML SC SCH (07:54)
[2019-03-16] MEDS: INSULIN HUMAN LISPRO (humaLOG) 100 UNITS/ML VIAL SC SCH ×3 (07:55→18:21)
--- NOTE | 2019-03-16 08:52 | Billing Data ---
Coding Level of Care Code 54019 Subseq Hosp Care Lvl 3
[2019-03-16] MEDS ORDERED: SUMAtriptan succinate 6 MG/0.5 ML VIAL SQ ONE (09:00)
[2019-03-16] MEDS: KETOROLAC 30 MG/ML VIAL IV PRN (09:19)
[2019-03-16 09:58] LABS: Albumin Level 3.1 gm/dl (3.4-5.0); BUN Creatinine Ratio 11.3 (10-20); Calcium 8.2 mg/dl (8.5-10.1); Creatinine Clr Calc Pharmacy 81.1 ml/min; Est GFR (African American) 98.4; Est GFR (Non-African American) 84.9; Potassium 3.5 mmol/L (3.5-5.1)
[2019-03-16 10:00] LABS: Bilirubin Direct 0.1 mg/dl (0-0.2); Bilirubin,Total 0.5 mg/dl (0.2-1); Total Protein 6.4 gm/dl (6.4-8.2)
[2019-03-16] MEDS ORDERED: MECLIZINE 12.5 MG TAB PO PRN (13:19)
[2019-03-16] MEDS ORDERED: SCOPOLAMINE 1.5 MG TDSY TD SCH (13:30)
[2019-03-16 13:35] LABS: Codeine Urine NEGATIVE ng/mL (<50); Hydrocodone Urine NEGATIVE ng/mL (<50); Hydromor Urine NEGATIVE ng/mL (<50); Marijuana Quant, GCMS Urine 36 ng/mL (<5); Morphine Urine 2500 ng/mL (<50); Norhydrocodone Conf Ur NEGATIVE ng/mL (<50); Noroxycodone Urine NEGATIVE ng/mL (<50); Oxycodone Urine NEGATIVE ng/mL (<50); Oxymorph Urine NEGATIVE ng/mL (<50)
[2019-03-16] MEDS ORDERED: CHECK SCOPOLAMINE PATCH PLACEMENT SCH (16:00)
[2019-03-16] MEDS ORDERED: diazePAM 2 MG TABLET PO ONE (16:29)
[2019-03-16] MEDS ORDERED: dexAMETHasone 10 MG in SYRINGE 0 ML IV ONE (17:00)
--- NOTE | 2019-03-16 17:34 | Discharge Summary ---
Date of Service March 16, 2019 Admission HPI Per Admitting Provider Pt is a 48yo M PMH T1DM who presents with his after an episode of confusion and altered speech. HPI provided by . Pt and local chiropractors. She states that about 1 week ago, he "threw out his back" and was in a significant amount of pain, and notes that in the last few days he started feeling quite sick, with body aches, chills, nausea/vomiting. She states that he was experiencing some alternating constipation, diarrhea, feeling like the had to have a BM but nothing would come out. She notes he has essentially been bed bound for about a week now. Today at 10AM, he got up to check his blood sugar, and she noticed he was trying to use the finger-prick on his arm, something he never does. He then attempted to hold the test strip to his wrist to collect blood that was not there. She helped to get a sample, and his BSG returned at 240. They administered 3 U of insulin per his ISS. Later in the evening he continued to be confused, stating that he wouldn't answer questions appropriately, answering his birthday incorrectly at times, not knowing the ages of their children, etc; so she decided to call 911. EMS arrived and rechecked glucose at around 220. initially refused transportation to hospital. She eventually drove him to the ER herself. NIHSS of 3 on arrival (issues with Dysarthria, language, orientation). States that he could recognize the object "feather" but would start saying "ffff--" and jibberish would come out. She states he has been taking some ibuprofen for sever head and neck pain, but they are averse to other medications. She notes his head and neck have been acutely bothering him today, stating his face muscles have been twitching. When asked about exposure to bites, cut, scrapes, declined. When asked if tetanus booster was up to date, she stated "I ask that no vaccinations be administered during his stay." When I clarified to ask if if he had had a tetanus booster in the last 10 years, she stated that "we have no need for vaccinations. 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 States she is "well-versed" in diabetes and for him to have a glucose of 240 is "extremely high" for him. She requests we use his own vials of insulin during his stay. CT head normal. Labwork otherwise normal. No alcohol, negative trop, ammonia <10. refused gadolinium for MRI scans; thus all scans w/o contrast. Flu negative. Pt tested for STDs a few months ago, all negative. Admission Exam Per Admitting Provider Constitutional: WD/WN, vitals as above unwell but not in distress Eyes: PERRL, conjunctivae normal, anicteric sclerae ENMT: Ears: no hearing impairment Neck: normal visual inspection Respiratory: normal respiratory effort, lungs clear to auscultation Cardiovascular: Rate/Rhythm: regular rate and regular rhythm Heart Sounds: + murmur Extremities: no edema Gastrointestinal (Abdomen): normal bowel sounds, soft, nontender, no hepatosplenomegaly Musculoskeletal: Head/Neck/Chest: head normal to inspection Extremities: no joint enlargement Skin: no rashes, warm and dry Neurologic: no focal motor deficits Speech / Cognition: + abnormal speech pt speaking with difficulty, not all words in sequence are correct; (words replaced with similar-sounding words). able to follow most commands but states exam is limited due to pain. Repeatedly states that we need to check his blood sugar, despite it having just been checked. Psychiatric: Orientation: alert and oriented x 3 Principal Diagnosis Suspected Viral Illness Possible Vestibulo Basilar Migraine Vertigo Discharge Exam General: In NAD HEENT: MMM, TMs pearly Neuro: A&O x 4 Pulm: CTAB equal breath sounds bilaterally CV: RRR, no m/r/g, cap refill 2 secs Abdomen:+BS, no TTP in all quadrants, non-distended LE: no LE edema, no calf TTP Discharge Data Allergies Allergy/AdvReac Type Severity Reaction Status Date / Time No Known Allergies Allergy Verified 03/13/19 01:33 Consultations 03/13/19 02:55 ED Decision to Admit Stat 03/13/19 05:50 Consult Neurology Routine 03/15/19 09:24 Consult Cardiology Routine 03/16/19 17:17 Consult [facility] k[facility]ominer Routine Ordered Studies 03/13/19 00:59 CT head/brain wo con Urgent 03/13/19 02:55 MR angio head wo con Urgent MR angio neck wo con Urgent MR brain wo con Urgent 03/13/19 14:34 MR cervical spine wo con Routine Hospital Course (1) Headache: AMS/speech alteration/headache/vertigo- speech/AMS improved during the stay with both returning to baseline well before discharge Likely in the setting of significant dehydration versus viral or tick born infection versus vestibulo basilar migraine Of note: All imaging ordered without contrast as patient and refused due to potential toxicity Note: Patient also taken supplements for illness such as lala bark, charcoal, papaya supplement CT head negative MRI brain: No acute abnormality very small foci of increased signal right occipital lobe MRA neck: Mild irregularity/dilation proximal right ICA likely atherosclerosis MRA head: Negative Troponin negative; EKG: Normal sinus rhythm 74 QTC 4 8 Lipids: Tchol elevated at 226. LDL 156, HDL 48, triglycerides 110; HgbA1c 6.5 Ammonia less than 10 UDS positive for marijuana and opiates however patient had received morphine in the ED prior to U tox collection Lyme disease/IgM negative, Western blot pending, anaplasmosis DNA pending, EBV and CMV titers pending, b12 and folate normal Neuro-likely symptoms were viral induced; meningitis not suspected and thus deferred on LP/EEG Received Toradol, sumatriptan, valium and dexamethasone for headache with relief of symptoms Discharged with scopolamine patch and meclizine 12.5mg Q6H PRN (10 tabs) for the vertigo symptoms (2) Atrial fibrillation: During vomiting episode around 8:47 AM , 03/15/19 patient went into A. fib rate 174 for about 2 to 3 minutes Previous history of syncope during vomiting episodes -possibly had arrhythmia in the past Patient also having short 2 to 3-second pauses Echo: EF 65 to 70%, mild MR and TR, left atrium mildly dilated, no wall motion abnormalities TSH 0. 207, normal free T4 EKG: Concern for flat T waves in inferior and lateral leads, possible early coronary artery disease specially given history of DM 1, rate 64 NSR QTC 400 Cardiology consulted: 30 day event monitor recommended Started on metoprolol 12.5 mg twice daily No anticoagulation initiated at this time CHADsVASC score 1 for DM 1, patient reports BP well controlled at home however if patient is noted to also have hypertension in the outpatient setting/home will likely require anticoagulation Follow-up with cardiology outpatient (3) Diabetes mellitus type 1: Continue home levemir and humalog (4) Vomiting: fever resolved however he had persistent headache and N/V during much of his stay Concern for viral etiology versus possible tickborne illness Afebrile since 03/13 WBC elevated to 13.4 with left shift -normalized POC lactate initially elevated to 1.78, repeat 1.1 ESR 9, CRP less than 0.29, pro Isaiah less than 0.05 Influenza a and B negative Lyme IgG and IgM negative, Western blot pending, anaplasmosis DNA pending Recent gonorrhea/chlamydia/HIV/RPR test also negative Monospot negative, EBV panel and CMV pending Blood cultures x2 no growth to date, urine culture negative MRI C-spine to rule out osteomyelitis/abscess/discitis -tiny left paracentral disc protrusion C6-C7 Started on Rocephin 2 g daily empirically DCed 03/15 given negative cultures Discussed starting on empiric treatment for tickborne illness given testing pend ing. Patient refused doxycycline empiric treatment as it could make GI symptoms worse Discharge with Zofran 4mg odt Q6H prn (10 tabs) Total Time Total Time Spent Total Time Spent (In Minutes): 60 Discharge Plan Discharge Items Patient Disposition: Home - Self-Care Reason For Visit: confusion Discharge Diagnosis: 1. suspected Viral illness 2. episodes of vertigo 3. episode of atrial fibrillation 4. headache - exact etiology uncertain, possibly due to #1 Activity: Resume your previous activity Driving/Machine Use: ok to resume driving once your vertigo is resolved OFF OF medications Non-emergency contact: Primary Care Provider Call non-emergency contact if: you have any medication questions, your symptoms worsen, your pain is not controlled, your pain is unusual for you, your pain is concerning for you and you have a fever Follow-up/Referrals: Guy Martinez MD [Physician] - (see Dr Martinez within 2 weeks ) Ela Nelson MD [Primary Care Provider] - 03/20/19 9:15 am (Please, follow up at Dr. Nelson's office with her associate, Shravan MARROQUIN, on WednesdayMarch 20 at 9:15 am. *If you need to change this appointment, call their office at [phone].) Diet: Carb Count or DM1 Addtl Attending Provider Instructions: Mr. Castorena -- you were admitted for concern of confusion and speech changes which improved shortly after your admission. You received a thorough stroke work up which was reassuring and you improved after you were well hydrated. Your headache, vomiting, and vertigo are likely from an acute viral illness as your infectious work up was reassuring. Other possibilities include a vestibulo basilar migraine or acute tickborn illness. Another possible explanation for your headache could be tension headache from neck strain. Your plan to get massage and chiropractic therapy are reasonable. You can also take tylenol up to 1000mg every 8 hours as needed or Ibuprofen 600mg every 8 hours as needed for your headaches. Your lyme and anaplasmosis testing is pending. You were offered empiric treatment with doxycycline which you declined due to possible GI side effects. You continued to have occasional episodes of vertigo with vomiting but you felt comfortable going home as your symptoms were overall improved and you preferred to get better rest at home. We have placed a scopolamine patch to help you with your nausea and vertigo which you can keep on until Wednesday evening (72hrs). We have also prescribed you meclizine which you can take to help with your vertigo (Meclizine 12.5mg every 6 hours as needed). You can take Zofran prescribed for any nausea/vomiting episodes (Zofran 4mg every 6 hours as needed). We recommend you follow up with your primary care doctor tomorrow. You were also evaluated by our technician trainee for episodes of short pauses and atrial fibrillation. You were prescribed Metoprolol 12.5mg twice a day as a heart rate control medication. Our cardiologists also suggested a 30 day event clay plant treater which our nurse navigator will help set up for you tomorrow and you will be receive it in the mail. You will need to follow up with Dr. Martinez, technician trainee outpatient to follow up on your atrial fibrillation and blood pressure. Our nurse navigator will help set up an appointment for you and contact you. Further discussion can be had with Dr. Martinez about anticoagulation (blood thinners) at your follow-up appointment with him. Pending Studies at Discharge: Yes (Anaplasmosis DNA, Lyme Western Blot, EBV panel and CMV ) Stand-Alone Forms: [employer], Smoking Cessation Medications and DC Order Prescriptions: New meclizine 12.5 mg Tablet 12.5 mg PO Q6H PRN (Reason: dizziness) Qty: 10 RF: 0 metoprolol tartrate 25 mg Tablet 12.5 mg PO BID Qty: 30 RF: 0 ondansetron 4 mg tablet,disintegrating 4 mg PO Q6H PRN (Reason: nausea and vomiting) Qty: 10 RF: 0 Continued insulin lispro [Humalog U-100 Insulin] 100 unit/mL solution 6 - 7 units SUBCUT DAILY Qty: 30 RF: 1 sildenafil [Viagra] 100 mg tablet 100 mg PO DAILY PRN (Reason: sexual activity) Qty: 6 RF: 5 omega 8-qqp-sdl-fish oil [Fish Oil] 1,000 mg (120 mg-180 mg) Capsule 1 cap PO DAILY RF: 0 Levemir U-100 Insulin 100 unit/mL Solution 6 SUBCUT BID RF: 0 Discharge Orders: Discharge Order (Routine); Ordered 03/16/19 Ordered By: Brandy Weston/Other Patient Handouts: ED Afib Admission Data Admit Date/Time: 03/13/19 17:53 Attending Provider: Александр Bustos Admit Provider: Roberta Torres Primary Care Provider: Ela Nelson Other Providers: Sunny Dodson ; Sadiq Herrera III ; Guy Martinez Other Interventions: Discharge Summary Assessment (RN) Last Done: 03/16/19 17:52 DC Date/Time DO NOT enter until pt leaves facility: 03/16/19 18:50 Supervising Physician Co-Signing Physician Notes Resident Physician Supervision Note: I was present with PGY3 Dr. Brandy Bishop during the discharge history & exam. I discussed the case with the resident and agree with the findings and plan as documented in the discharge note. Any exceptions or clarifications are listed here: none. 48yo male with T1DM who presented with altered mental status, low-grade fever, and illness for 1-2 weeks prior to admission. Initially thought to represent a TIA and TIA work-up was initiated upon admission. It became clear over the initial portion of his stay, however, that he did NOT have a TIA but that he was suffering from some form of infectious process. He underwent extensive work-up for the altered mental status and headache as delineated above. Seen by neurology, Dr Herrera. No acute findings were found on MRI brain, MRA head/neck, echo, etc. Extensive work-up was pursued for the leukocytosis and low-grade fever. Blood cx's, urine cx, monospot, lyme screen, chest x-ray, u/a, etc -- all negative or normal. Tick-borne disease vs viral etiology were suspected but unable to be confirmed. Lyme western blot, anaplasmosis, mono titers, etc all pending at discharge. Stay complicated by episode of PAF, sinus pauses, and brief episodes of vertigo brought on by sudden head movements. He also had ongoing occipital headache. Seen by cardiology for the PAF and sinus pauses. Nothing to do for latter; beta dank recommended for PAF. Anticoagulation discussed; CHADS-VASc is either a 1 or 2 (2 if he is deemed to have diagnosis of HTN). 30-day event monitor will be obtained to check frequency of PAF and look at pauses. Headache differential - vertebral-basilar migraine vs mixed tension/migraine vs headache due to illness vs other. Head/neck imaging was wnl. No evidence of c-spine abscess/discitis. gen - nontoxic; looks better than previous exams neck - no rigidity or meningismus lymph - no cervical, axillary, or inguinal LAD b/l mouth - no sores, ulcers, or thrush; MMM heart - rosio, s1 s2, no murmur lungs - CTA b/l abd - soft no HSM nt nd ext - no edema musculo - no pain or tenderness over c-spine or t-spine to palpation; no joint effusions neuro - strength 5/5 x 4 exts blood cx's negative Patient will need close f/u with PCP and cardiology for the variety of issues he had had. Will need f/u on pending labs and repeat TSH in a few weeks post-d/c. Of note - patient's tox screen was indeed + for THC. Also positive for opiates but the tox screen was obtained AFTER he had had morphine IV in the ER. 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 Stated he uses THC about 2x/week. I could not rule out cannabis hyperemesis syndrome as the cause of his GI symptoms while here. Documented By: Алекасндр Bustos MD Resident Activity Tracking Resident Involvement: Resident Care Provided Care Provided: Adult [facility] Medicine
[2019-03-17 13:06] LABS: CMV IgM Antibody <30.00 AU/mL
[2019-03-18 02:06] LABS: 18KDIGG Band NON-REACTIVE; 23KDIGG Band NON-REACTIVE; 23KDIGM Band NON-REACTIVE; 28KDIGG Band NON-REACTIVE; 30KDIGG Band NON-REACTIVE; 39KDIGG Band NON-REACTIVE; 39KDIGM Band NON-REACTIVE; 41KDIGG Band NON-REACTIVE; 41KDIGM Band NON-REACTIVE; 45KDIGG Band NON-REACTIVE; 58KDIGG Band NON-REACTIVE; 66KDIGG Band NON-REACTIVE; 93KDIGG Band NON-REACTIVE; Lyme Antibodies, WB IgG NEGATIVE (NEGATIVE); Lyme Antibodies, WB IgM NEGATIVE (NEGATIVE)
--- NOTE | 2019-03-20 11:14 | Billing Data ---
Date of Service March 16, 2019 Coding Level of Care Code D/C Day Management >30 mins
== END 2019-03-16 18:50 | disposition home or self-care (01) | DRG 103 ==
LOC: 2S 00:12 → ED 00:12 → SUATTDRO 04:42 → 2S 05:08